=== PATIENT | female | born 1960 | race African-American/Black ===

== ENCOUNTER 2017-09-29 18:15 | Inpatient (IN) | payer OTHER ==
--- NOTE | 2017-09-29 18:25 | PDOC ---
Rapid Medical Evaluation Time Seen by Provider: 09/29/17 18:22 Medical Evaluation: I have performed a brief in-person evaluation of this patient. The patient presents with a chief complaint of: palpitations, sporadic since earlier today. Dr. Loo would like her admitted Pertinent physical exam findings: none I have ordered the following: EKG, labs, UA/culture The patient will proceed to the ED for further evaluation.
[2017-09-29 19:39] LABS: BASO % 0.5 % (0-2.0); HEMATOCRIT 32.2 % (32.4-45.2); HEMOGLOBIN 10.6 GM/dL (10.7-15.3); LYMPH % 29.6 % (8-40); MCH 28.3 pg (25.7-33.7); MCHC 32.8 g/dl (32.0-36.0); MEAN CELL VOLUME 86.1 fl (80-96); MEAN PLT VOLUME 9.4 fl (7.5-11.1); MONO % 6.5 % (3.8-10.2); NEUT % 63.4 % (42.8-82.8); PLATELET COUNT 224 K/MM3 (134-434); RBC 3.74 M/mm3 (3.60-5.2); RDW 15.6 % (11.6-15.6); WHITE BLOOD COUNT 7.4 K/mm3 (4.0-10.0)
--- NOTE | 2017-09-29 19:53 | PDOC ---
History of Present Illness - General Chief Complaint: Chest Pain Stated Complaint: CHEST PAIN Time Seen by Provider: 09/29/17 18:22 History Source: Patient - History of Present Illness Initial Comments: 09/29/17 19:39 57 year old female with Complaining of palpitations, chest pain, shortness of breath is morning. Patient reports that she has a past medical history of coronary artery disease with stents, IDDM, psychiatric illness. Patient reports that she took 1 baby aspirin this morning. She is a current every day smoker. patient was sent by pmd for admission BY pMD. patient reports that she was recently admitted for psychiatric illness and was started on Pristiq PMD: DR. Loo Cardiology: Dr. Ben Cervantes Past History - Past Medical History Allergies/Adverse Reactions: Allergies Allergy/AdvReac Type Severity Reaction Status Date / Time No Known Allergies Allergy Verified 09/29/17 18:23 Home Medications: Ambulatory Orders Aspirin 81 mg PO DAILY 09/29/17 Atenolol [Tenormin -] 25 mg PO DAILY 09/29/17 Desvenlafaxine [Desvenlafaxine ER] 100 mg PO DAILY 09/29/17 Lisinopril 10 mg PO DAILY 09/29/17 Olanzapine 12.5 mg PO HS 09/29/17 Rosuvastatin [Crestor -] 10 mg PO DAILY 09/29/17 Insulin Sliding Scale [Novolog Vial Sliding Scale -] 1 vial SQ ACHS units 10/01 Nicotine Polacrilex [Nicorelief -] 2 mg BUC Q2H PRN gum 10/01/17 Olanzapine [ZyPREXA -] 12.5 mg PO HS tablet 10/01/17 Olanzapine [Zyprexa -] 12.5 mg PO HS tablet 10/01/17 Insulin (Levemir) [Levemir Vial] 25 units SQ AM ml 10/02/17 Insulin (Levemir) [Levemir Vial] 70 units SQ HS ml 10/02/17 Cardiac Disorders: Yes (CAD, 3 STENTS) COPD: No Diabetes: Yes HTN: Yes Psychiatric Problems: Yes - Surgical History Cardiac Surgery: Yes (3 STENTS) - Suicide/Smoking/Psychosocial Hx Smoking History: Current every day smoker Have you smoked in the past 12 months: Yes Number of Cigarettes Smoked Daily: 10 Information on smoking cessation initiated: No Review of Systems - Review of Systems Able to Perform ROS?: Yes Is the patient limited Syriac proficient: No Constitutional: No: Symptoms Reported, See HPI, Chills, Diaphoresis, Fever, Loss of Appetite, Malaise, Night Sweats, Weakness, Weight Stable, Unintentional Wgt. Loss, Unexplained wgt Loss, Other HEENTM: No: Symptoms Reported, See HPI, Eye Pain, Blurred Vision, Tearing, Recent change in vision, Double Vision, Cataracts, Ear Pain, Ocular Prothesis, Ear Discharge, Nose Pain, Nose Congestion, Tinnitus, Nose Bleeding, Hearing Loss , Throat Pain, Throat Swelling, Mouth Pain, Dental Problems, Difficulty Swallowing, Mouth Swelling, Other Respiratory: Yes: Shortness of Breath. No: Symptoms reported, See HPI, Cough, Orthopnea, SOB with Exertion, SOB at Rest, Stridor, Wheezing, Productive cough, Hemoptysis, Other Cardiac (ROS): Yes: Chest Pain, Palpitations ABD/GI: No: Symptoms Reported, See HPI, Abdominal Distended, Abd. Pain w/ defecation, Blood Streaked Bowels, Constipated, Diarrhea, Difficulty Swallowing , Nausea, Poor Appetite, Poor Fluid Intake, Rectal Bleeding, Vomiting, Indigestion, Abdominal cramping, Tarry Stools, Other Integumentary: No: Symptoms Reported, See HPI, Bruising, Change in Color, Change in Hair/Nails, Dryness, Erythema, Flushing, Lesions, Lumps, Pallor, Pruritus, Rash, Sweating, Other Neurological: No: Symptoms reported, See HPI, Headache, Numbness, Paresthesia, Pre-Existing Deficit, Seizure, Tingling, Tremors, Weakness, Unsteady Gait, Ataxia, Dizziness, Other *Physical Exam - Vital Signs Last Vital Signs Temp Pulse Resp BP Pulse Ox 98.5 F 94 H 18 136/81 97 10/02/17 10:00 10/02/17 10:00 10/02/17 10:00 10/02/17 10:10/02/17 10:00 - Physical Exam General Appearance: Yes: Appropriately Dressed HEENT: positive: Normal ENT Inspection Respiratory/Chest: positive: Lungs Clear, Normal Breath Sounds Cardiovascular: positive: Regular Rhythm, Regular Rate, S1, S2 Gastrointestinal/Abdominal: positive: Normal Bowel Sounds, Soft Musculoskeletal: positive: Normal Inspection Extremity: positive: Normal Capillary Refill, Normal Inspection, Normal Range of Motion Integumentary: positive: Normal Color, Dry, Warm Neurologic: positive: Fully Oriented, Alert, Normal Mood/Affect Heart Score/ECG Review - History History: Moderately suspicious - Electrocardiogram EKG: Normal - Age Age: 45-65 - Risk Factors Risk Factors Heart Score: Yes Hx Hypercholesterolemia, Yes Hx Hypertension, Yes Hx Diabetes, Yes Smoking History Based on the list above the patient has:: >/=3 risk factors or Hx atherosclerotic disease - Troponin Troponin: </= normal limit - Score Heart Score - Total: 4 - ECG Intrepretation Rhythm: Regular Rhythm Comment:: 09/29/17 20:30 NSR " 100bpm - P and [place] Atrial Enlargement: Left ED Treatment Course - LABORATORY CBC & Chemistry Diagram: 09/30/17 06:00 09/30/17 06:00 - ADDITIONAL ORDERS Additional order review: 09/29/17 19:10 RBC 3.74 MCV 86.1 MCHC 32.8 RDW 15.6 MPV 9.4 Neutrophils % 63.4 Lymphocytes % 29.6 Monocytes % 6.5 Eosinophils % 0.0 Basophils % 0.5 - RADIOLOGY Chest X-Ray Result: No Infiltrates - Medications Given in the ED: ED Medications Discontinued Medications Generic Name Dose Route Start Last Admin Trade Name Freq PRN Reason Stop Dose Admin Aspirin 325 mg 09/29/17 22:26 09/29/17 23:02 Asa - PO 09/29/17 22:27 325 mg ONCE ONE Administration Aspirin 81 mg 09/30/17 10:00 10/02/17 10:19 Asa - PO 81 mg DAILY MARI Administration Atenolol 25 mg 09/30/17 10:00 09/30/17 10:48 Tenormin - PO 25 mg DAILY MARI Administration Atenolol 25 mg 10/02/17 10:00 10/02/17 10:19 Tenormin - PO 25 mg DAILY MARI Administration Clopidogrel Bisulfate 300 mg 10/02/17 10:24 10/02/17 10:49 Plavix - PO 10/02/17 10:25 300 mg ONCE ONE Administration Insulin Aspart 1 vial 09/30/17 07:00 10/02/17 06:22 Novolog Vial Sliding Scale - SQ Not Given [facility] Protocol Insulin Detemir 70 units 09/30/17 22:00 09/30/17 21:47 Levemir Vial SQ 70 units HS MARI Administration Insulin Detemir 25 units 10/01/17 07:00 10/02/17 06:22 Levemir Vial SQ Not Given AM MARI Lisinopril 10 mg 09/30/17 10:00 10/02/17 10:19 Prinivil PO 10 mg DAILY MARI Administration Olanzapine 2.5 mg/ Olanzapine 12.5 mg 09/30/17 22:00 10/01/17 21:53 10 mg PO 12.5 mg HS MARI Administration Rosuvastatin Calcium 10 mg 09/30/17 10:00 10/02/17 10:19 Crestor - PO 10 mg DAILY MARI Administration Venlafaxine HCl 150 mg 09/30/17 10:00 10/02/17 10:19 Effexor Xr - PO 150 mg DAILY MARI Administration Medical Decision Making - Medical Decision Making Chest pain P: cbc cmp cardiac chest xray 09/29/17 21:13 patient to be admitted for further management of care., patient signed to Dr. Bain *DC/Admit/Observation/Transfer Diagnosis at time of Disposition: Heart palpitations Chest pain Qualifiers: Chest pain type: chest pain on breathing Qualified Code(s): R07.1 - Chest pain on breathing - Discharge Dispostion Condition at time of disposition: Fair Decision to Admit order: Yes - Referrals - Patient Instructions - Post Discharge Activity
[2017-09-29 19:54] LABS: ALBUMIN 3.6 g/dl (3.4-5.0); ANION GAP 6 (8-16); BILIRUBIN,TOTAL 0.3 mg/dL (0.2-1.0); BLOOD UREA NITROGEN 13 mg/dL (7-18); CALCIUM 8.9 mg/dL (8.5-10.1); CHLORIDE 107 mmol/L (98-107); CO2 28 mmol/L (21-32); CREATININE 0.7 mg/dL (0.55-1.02); GLUCOSE,RANDOM 122 mg/dL (74-106); POTASSIUM 3.9 mmol/L (3.5-5.1); SGOT/AST 18 U/L (15-37); SGPT/ALT 36 U/L (12-78); SODIUM 141 mmol/L (136-145); TOT PROT 6.4 g/dl (6.4-8.2)
[2017-09-29 19:56] LABS: ALK PHOS 52 U/L (45-117)
[2017-09-29 21:11] LABS: URINE APPEARANCE CLOUDY; URINE BILIRUBIN NEGATIVE (<2.0 mg/dL); URINE COLOR YELLOW; URINE GLUCOSE (UA) NEGATIVE (NEGATIVE); URINE KETONE NEGATIVE (NEGATIVE); URINE NITRITE NEGATIVE (NEGATIVE); URINE PROTEIN NEGATIVE (NEGATIVE); URINE UROBILINOGEN NEGATIVE mg/dL (0.2-1.0)
[2017-09-29 21:17] LABS: URINE LEUK ESTERASE 3+ (NEGATIVE)
[2017-09-29 21:20] LABS: EPI CELLS MANY /HPF (FEW); URINE BACTERIA RARE /hpf (NONE SEEN); URINE MUCUS RARE
--- NOTE | 2017-09-29 21:32 | HP ---
Admitting History and Physical - Primary Care Physician PCP: Albin Loo - Admission Chief Complaint: chest pain/palpitations History of Present Illness: 57yo woman with PMH of CAD s/p 3 x stents, active smoker, IDDM, MDD (recent Psych in-pt August 2017) who presents with chest palpitations and shortness of breath starting earlier today. Patient was driving to her PCP (Dr. Loo) earlier today when she felt chest palpitations that was associated with intermittent, non-radiating chest pain localized to under L breast. Reports that she had similar symptoms that lead to her stent placement. Also endorses associated shortness of breath. Denies chest pressure, diaphoresis, nausea, vomiting, diarrhea, and abdominal pain. Denies dysuria or urinary frequency. Denies any recent ECHO or stress test. History Source: Patient, Medical Record Limitations to Obtaining History: No Limitations - Past Medical History Cardiovascular: Yes: CAD, HTN, Hyperlipdemia Psych: Yes: Depression, Other (Multiple in-patient psychiatric hospitalizations for MDD; last 09/04- 24 at [facility] for suicidal ideation, no prior suicide attemps. Recently started on Pristiq (Desvenlafaxine 100mg daily)) - Past Surgical History Additional Past Surgical History: December 2014 - 1x Stent (by Dr. 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 History of Recent Travel: No Home Medications - Allergies Allergies/Adverse Reactions: Allergies Allergy/AdvReac Type Severity Reaction Status Date / Time No Known Allergies Allergy Verified 09/29/17 18:23 - Home Medications Home Medications: Ambulatory Orders Aspirin 81 mg PO DAILY 09/29/17 Atenolol [Tenormin -] 25 mg PO DAILY 09/29/17 Desvenlafaxine [Desvenlafaxine ER] 100 mg PO DAILY 09/29/17 Insulin Glulisine [Apidra Solostar] 70 unit SQ HS 09/29/17 Lisinopril 10 mg PO DAILY 09/29/17 Metformin HCl 500 mg PO BID 09/29/17 Olanzapine 12.5 mg PO HS 09/29/17 Rosuvastatin [Crestor -] 10 mg PO DAILY 09/29/17 Sitagliptin Phosphate [Januvia] 100 mg PO DAILY 09/29/17 Family Disease History - Family Disease History Family Disease History: Diabetes: Father ([place]), Mother (CABG, at 73yo; Depression), Other: Mother, Brother (Depression; committed suicide) Review of Systems - Review of Systems Cardiovascular: reports: Chest Pain, Palpitations, Shortness of Breath Respiratory: reports: Exercise Intolerance Gastrointestinal: reports: Other (No diarrhea, nausea, vomiting, melena, abdominal pain) Psychiatric: reports: Other. denies: Suicidal (no active suicidial ideation) Physical Examination Vital Signs: Vital Signs Temperature 98.6 F 09/29/17 18:23 Pulse Rate 104 H 09/29/17 18:23 Respiratory Rate 19 09/29/17 18:23 Blood Pressure 147/77 09/29/17 18:23 O2 Sat by Pulse Oximetry (%) 98 09/29/17 19:50 Constitutional: Yes: Well Nourished, No Distress Eyes: Yes: Conjunctiva Clear, EOM Intact. No: Sclera Icterus HENT: No: Pharyngeal Erythema Neck: Yes: Supple. No: Lymphadenopathy Cardiovascular: Yes: Regular Rate and Rhythm. No: Gallop, Murmur, Rub Respiratory: Yes: CTA Bilaterally Gastrointestinal: Yes: Soft, Abdomen, Obese, Other (non-tender, non-distended) Renal/: Yes: WNL, Other (No suprapubic tenderness). No: CVA Tenderness - Left , CVA Tenderness - Right Extremities: Yes: WNL Edema: No Peripheral Pulses WNL: Yes Peripheral Pulses: Left Doralis Pedis: 2+, Right Dorsalis Pedis: 2+ Neurological: Yes: WNL, Alert, Oriented, Cran Nerves II-XII Intact ...Motor Strength: WNL Psychiatric: Yes: WNL Labs: CBC, BMP 09/29/17 19:10 09/29/17 19:10 Urine Test Results Urine Color Yellow 09/29/17 21:03 Urine Appearance Cloudy 09/29/17 21:03 Urine pH 6.0 (5.0-8.0) 09/29/17 21:03 Ur Specific [place] 1.015 (1.001-1.035) 09/29/17 21:03 Urine Protein Negative (NEGATIVE) 09/29/17 21:03 Urine Glucose (UA) Negative (NEGATIVE) 09/29/17 21:03 Urine Ketones Negative (NEGATIVE) 09/29/17 21:03 Urine Blood Negative (NEGATIVE) 09/29/17 21:03 Urine Nitrite Negative (NEGATIVE) 09/29/17 21:03 Urine Bilirubin Negative (<2.0 mg/dL) 09/29/17 21:03 Ur Leukocyte Esterase 3+ (NEGATIVE) H 09/29/17 21:03 Ur Epithelial Cells Many /HPF (FEW) 09/29/17 21:03 Urine Bacteria Rare /hpf (NONE SEEN) 09/29/17 21:03 Urine Mucus Rare 09/29/17 21:03 Laboratory Tests 09/29/17 09/29/17 09/29/17 19:10 21:14 21:14 D-Dimer 346 Creatine Kinase 204 H Creatine Kinase Index 0.9 CK-MB (CK-2) 1.951 Troponin I < 0.02 TSH 0.48 Imaging - Results Chest X-ray: Image Reviewed (No acute pathology) EKG: Image Reviewed (NSR, rate 100, Q waves anteroseptal leads, QTc 479 (no prior EKGs to compare)) Assessment/Plan 57yo woman with PMH of CAD s/p 3x stents, IDDM, HTN, hyperlipidemia, and MDD who presents with intermittent chest pain and palpitations starting earlier today concerning for cardiac etiology. #atypical chest pain, r/o ACS. TSH wnl. D-dimer not elevated. 1x Trop negative -Serial Troponin Q6H -Trend EKG -Give ASA 325mg PO now, c/w home ASA 81 daily and Atenolol 25mg daily -continuous telemetry monitoring -Cardiology consultation -2D ECHO -Morphine and nitropaste PRN for chest pain -check lipid panel #HTN - c/w home lisinopril #IDDM -Check A1c -c/w home Glargine 70U HS -BGM/ISS ACHS #hyperlipidemia - c/w home statin #major depression disorder -c/w home meds #normocytic anemia -Check B12, Folate, Fe Studies -Advised colonoscopy screening as never had one #nicotine dependence #FEN PO intake lytes wnl DM/Na controlled diet #PPX - SCDs #DISPO: observation telemetry FULL code d/w Dr. Taya Cervantes MD PGY1 - Internal Medicine, Night Configuration Consultant Visit type - Emergency Visit Emergency Visit: Yes Care time: The patient presented to the Emergency Department on the above date and was hospitalized for further evaluation of their emergent condition. - New Patient This patient is new to me today: Yes Date on this admission: 09/29/17 - Critical Care Critical Care patient: No Hospitalist Screening - Colonoscopy Questionnaire Colonoscopy Questionnaire: Colonoscopy Questionnaire - Patient: 50 - 75 years old and never had a screening colonoscopy: Yes History of colon or rectal polyps, or CA: No History of IBD, Crohn's disease or UC: No History of abdominal radiation therapy as a child: Unknown - Relative: 1 with colon or rectal CA, or polyps at age 60 or younger: Unknown Colon or rectal CA diagnosed at age 45 or younger: Unknown Multiple relatives with colon or rectal CA: Unknown - Outcome: Screening Result: Positive Screen
--- NOTE | 2017-09-29 22:07 | PN ---
Teaching Attending Note Name of Resident: Sheryl Cervantes ATTENDING PHYSICIAN STATEMENT I saw and evaluated the patient. I reviewed the resident's note and discussed the case with the resident. I agree with the resident's findings and plan as documented. SUBJECTIVE: 57 F with pmhx of CAD s/p 3 stents, Current Smoker, IDDM, "psychiatric illness "/?MDD, who presents with palpitations and shortness of breath. Also with associated chest pain. States Pain is located underneath her left breast and is non-radiating. No chest pressure. No diaphoresis. No nausea, vomiting, or diarrhea. No urinary frequency or urgency/dysuria. States her chest pain is her anginal equivlant of pain she had 3 years ago before her stent. OBJECTIVE: Physical: VS: Vital Signs Period Temp Pulse Resp BP Sys/[place] Pulse Ox Last 24 Hr 98.6 F 104 19 147/77 98-99 GEN: NAD, Resting in bed, AA0X3 HEENT: NCAT, PERRL, Throat without erythema or exudates CARD: RRR S1, S2 RESP: CTAB ABD: Bsx4, NTD to palpation EXT:- C/C/E CBCD WBC 7.4 K/mm3 (4.0-10.0) 09/29/17 19:10 RBC 3.74 M/mm3 (3.60-5.2) 09/29/17 19:10 Hgb 10.6 GM/dL (10.7-15.3) L 09/29/17 19:10 Hct 32.2 % (32.4-45.2) L 09/29/17 19:10 MCV 86.1 fl (80-96) 09/29/17 19:10 MCHC 32.8 g/dl (32.0-36.0) 09/29/17 19:10 RDW 15.6 % (11.6-15.6) 09/29/17 19:10 Plt Count 224 K/MM3 (134-434) 09/29/17 19:10 MPV 9.4 fl (7.5-11.1) 09/29/17 19:10 CMP Sodium 141 mmol/L (136-145) 09/29/17 19:10 Potassium 3.9 mmol/L (3.5-5.1) 09/29/17 19:10 Chloride 107 mmol/L (98-107) 09/29/17 19:10 Carbon Dioxide 28 mmol/L (21-32) 09/29/17 19:10 Anion Gap 6 (8-16) L 09/29/17 19:10 BUN 13 mg/dL (7-18) 09/29/17 19:10 Creatinine 0.7 mg/dL (0.55-1.02) 09/29/17 19:10 Creat Clearance w eGFR > 60 (>60) 09/29/17 19:10 Random Glucose 122 mg/dL (74-106) H 09/29/17 19:10 Calcium 8.9 mg/dL (8.5-10.1) 09/29/17 19:10 Total Bilirubin 0.3 mg/dL (0.2-1.0) 09/29/17 19:10 AST 18 U/L (15-37) 09/29/17 19:10 ALT 36 U/L (12-78) 09/29/17 19:10 Alkaline Phosphatase 52 U/L (45-117) 09/29/17 19:10 Total Protein 6.4 g/dl (6.4-8.2) 09/29/17 19:10 Albumin 3.6 g/dl (3.4-5.0) 09/29/17 19:10 CARDIAC ENZYMES Creatine Kinase 204 IU/L (26-192) H 09/29/17 19:10 Troponin I < 0.02 ng/ml (0.00-0.05) 09/29/17 19:10 CXR: NO Acute Disease EKG: NSR Q waves anteroseptal leads, QtC- 479 Home Medications Medication Instructions Recorded Aspirin 81 mg PO DAILY 09/29/17 Atenolol [Tenormin -] 25 mg PO DAILY 09/29/17 Desvenlafaxine [Desvenlafaxine ER] 100 mg PO DAILY 09/29/17 Insulin Glulisine [Apidra Solostar] 70 unit SQ HS 09/29/17 Lisinopril 10 mg PO DAILY 09/29/17 Metformin HCl 500 mg PO BID 09/29/17 Olanzapine 2.5 mg PO HS 09/29/17 Rosuvastatin [Crestor -] 10 mg PO DAILY 09/29/17 Sitagliptin Phosphate [Januvia] 100 mg PO DAILY 09/29/17 ASSESSMENT AND PLAN: 57 F with pmhx of CAD s/p 3 stents, Current Smoker, IDDM, "psychiatric illness "/?MDD, who presents with chest pain and palpitations 1.) Chest Pain/Hx. of CAD/Shortness of Breath - Wells 1.5 Tachy - Trend Trop/EKG - ECHO - HEART 4 - ASA, BB - Nitro/Morphine prn pain - O2 - Dimer 2.) Palpitations - Check TSH 3.) DM - FS - RAISS 4.) MDD - C/W Home meds 5.) Current Smoker - Advised smoking cessation 6.) Normocytic Anemia - Check B12, Folate, Fe Studies - [place] oupt. if not recently done 7.) DVT Ppx - Scds Place in Obs-Tele
[2017-09-29] MEDS ORDERED: ASPIRIN 325 MG TABLET PO ONE (22:26)
[2017-09-29] MEDS ORDERED: morphine SULFATE 4 MG/ML VIAL IVPUSH PRN (23:08)
[2017-09-29] MEDS ORDERED: NITROGLYCERIN 2% OINTMENT - 1GM PACKET TD PRN (23:08)
[2017-09-30] MEDS ORDERED: NICOTINE POLACRILEX 2 MG GUM BUC PRN (01:16)
[2017-09-30 02:51] VITALS: BMI 27.1
[2017-09-30] MEDS: INSULIN SLIDING SCALE (NOVOLOG) 1 VIAL SQ SCH ×4 (06:07→21:48)
[2017-09-30 06:53] LABS: HEMATOCRIT 32.4 % (32.4-45.2); HEMOGLOBIN 10.7 GM/dL (10.7-15.3); MCHC 32.9 g/dl (32.0-36.0); MEAN CELL VOLUME 84.9 fl (80-96); MEAN PLT VOLUME 8.9 fl (7.5-11.1); PLATELET COUNT 223 K/MM3 (134-434); RBC 3.81 M/mm3 (3.60-5.2); RDW 15.4 % (11.6-15.6); WHITE BLOOD COUNT 6.5 K/mm3 (4.0-10.0)
[2017-09-30 07:05] LABS: ANION GAP 6 (8-16); BLOOD UREA NITROGEN 10 mg/dL (7-18); CHLORIDE 108 mmol/L (98-107); CO2 29 mmol/L (21-32); GLUCOSE,RANDOM 124 mg/dL (74-106); POTASSIUM 3.7 mmol/L (3.5-5.1); SODIUM 143 mmol/L (136-145)
[2017-09-30 07:06] LABS: CREATININE 0.5 mg/dL (0.55-1.02)
[2017-09-30] MEDS ORDERED: ATENOLOL 25 MG TABLET (FP) PO SCH (10:00)
--- NOTE | 2017-09-30 10:01 | EKG ---
Test Reason : Blood Pressure : / mmHG Vent. Rate : 091 BPM Atrial Rate : 091 BPM P-R Int : 152 ms QRS Dur : 090 ms QT Int : 396 ms P-R-T Axes : 070 000 091 degrees QTc Int : 487 ms NORMAL SINUS RHYTHM POSSIBLE LEFT ATRIAL ENLARGEMENT SEPTAL INFARCT (CITED ON OR BEFORE 29-SEP-2017) ABNORMAL ECG WHEN COMPARED WITH ECG OF 29-SEP-2017 18:31, NO SIGNIFICANT CHANGE WAS FOUND Confirmed by MD Kishan, Tyson ([id number]) on 09/30/2017 10:00:55 AM Referred By: Confirmed By:Tyson Holley MD
--- NOTE | 2017-09-30 10:03 | EKG ---
Test Reason : Blood Pressure : / mmHG Vent. Rate : 100 BPM Atrial Rate : 100 BPM P-R Int : 136 ms QRS Dur : 086 ms QT Int : 372 ms P-R-T Axes : 067 -20 089 degrees QTc Int : 479 ms NORMAL SINUS RHYTHM POSSIBLE LEFT ATRIAL ENLARGEMENT ANTEROSEPTAL INFARCT , AGE UNDETERMINED ABNORMAL ECG Lateral T wave abnormalities Confirmed by MD Kishan, Tyson ([id number]) on 09/30/2017 10:03:23 AM Referred By: Confirmed By:Tyson Holley MD
[2017-09-30] MEDS ORDERED: INSULIN (NOVOLOG) ASPART 100 UNITS/ML 10ML VIAL ONE (10:41)
[2017-09-30] MEDS: VENLAFAXINE HCL 75 MG E.R. CAPSULES (FP) PO SCH (10:47)
[2017-09-30] MEDS: ASPIRIN 81 MG CHEWABLE TABLETS PO SCH (10:48)
[2017-09-30] MEDS: ROSUVASTATIN CA 10 MG TABLET (FP) PO SCH ×2 (10:48→11:04)
[2017-09-30] MEDS: LISINOPRIL 10 MG TABLET (FP) PO SCH (10:48)
[2017-09-30 11:11] LABS: CHOLESTEROL 113 mg/dL (50-200); HDL CHOLESTEROL 51 mg/dL (40-60); TRIGLYCERIDES 106 mg/dL (35-160)
--- NOTE | 2017-09-30 13:54 | EKG ---
Test Reason : Blood Pressure : / mmHG Vent. Rate : 100 BPM Atrial Rate : 100 BPM P-R Int : 138 ms QRS Dur : 088 ms QT Int : 366 ms P-R-T Axes : 079 003 083 degrees QTc Int : 472 ms NORMAL SINUS RHYTHM SEPTAL INFARCT (CITED ON OR BEFORE 29-SEP-2017) ABNORMAL ECG WHEN COMPARED WITH ECG OF 29-SEP-2017 22:43, NO SIGNIFICANT CHANGE WAS FOUND Confirmed by MD Kishan, Tyson ([id number]) on 09/30/2017 1:54:15 PM Referred By: ANSHU BAUTISTA Confirmed By:Tyson Holley MD
--- NOTE | 2017-09-30 14:51 | PN ---
Progress Note, Physician Chief Complaint: 57 year old black female presented complaining of palpitations, chest pain, shortness of breath in the morning. Patient reports that she has a past medical history of coronary artery disease ([place]) with coronary stents (latest 01/2015), psychiatric illness, DM, HTN, hyperlipidemia; father of [place] in his 50s; mother had CABG in her early 70s. Patient reports that she took 1 baby aspirin this morning. She is a current every day smoker. patient was sent by pmd for admission. patient reports that she was recently admitted for psychiatric illness and was started on Pristiq - Current Medication List Current Medications: Active Medications Aspirin (Asa -) 81 mg PO DAILY [facility] Last Admin: 09/30/17 10:48 Dose: 81 mg Atenolol (Tenormin -) 25 mg PO DAILY [facility] Last Admin: 09/30/17 10:48 Dose: 25 mg Insulin Aspart (Novolog Vial Sliding Scale -) 1 vial SQ [facility] PRN Reason: Protocol Last Admin: 09/30/17 11:11 Dose: 2 units Insulin Detemir (Levemir Vial) 70 units SQ [facility] Lisinopril (Prinivil) 10 mg PO DAILY [facility] Last Admin: 09/30/17 10:48 Dose: 10 mg Morphine Sulfate (Morphine Sulfate) 1 mg IVPUSH Q4H PRN PRN Reason: PAIN LEVEL 7 - 10 Nicotine Polacrilex (Nicorette Gum -) 2 mg BUC Q2H PRN PRN Reason: NICOTINE REPLACEMENT RX Nitroglycerin (Nitro-Bid 2% Paste -) 0.5 inch TD ONCE PRN PRN Reason: FOR CHEST PAIN Stop: 09/30/17 23:07 Olanzapine 2.5 mg/ Olanzapine (10 mg) 12.5 mg PO [facility] Rosuvastatin Calcium (Crestor -) 10 mg PO DAILY [facility] Last Admin: 09/30/17 11:04 Dose: Not Given Venlafaxine HCl (Effexor Xr -) 150 mg PO DAILY [facility] Last Admin: 09/30/17 10:47 Dose: 150 mg - Objective Vital Signs: Vital Signs Temperature 98.6 F 09/30/17 10:00 Pulse Rate 88 09/30/17 10:00 Respiratory Rate 18 09/30/17 10:00 Blood Pressure 133/67 09/30/17 10:00 O2 Sat by Pulse Oximetry (%) 97 09/30/17 10:00 Constitutional: Yes: Mild Distress Eyes: Yes: WNL HENT: Yes: WNL Neck: Yes: WNL Cardiovascular: Yes: WNL Respiratory: Yes: WNL Gastrointestinal: Yes: WNL Genitourinary: Yes: WNL Musculoskeletal: Yes: WNL Extremities: Yes: WNL Edema: No Peripheral Pulses WNL: Yes Integumentary: Yes: WNL Wound/Incision: Yes: Clean/Dry Neurological: Yes: WNL ...Motor Strength: WNL Psychiatric: Yes: Other Labs: CBC, BMP 09/30/17 06:00 09/30/17 06:00 Problem List - Problems (1) Chest pain Code(s): R07.9 - CHEST PAIN, UNSPECIFIED Qualifiers: Chest pain type: chest pain on breathing Qualified Code(s): R07.1 - Chest pain on breathing; R07.81 - Pleurodynia (2) Controlled diabetes mellitus type 2 with complications Code(s): E11.8 - TYPE 2 DIABETES MELLITUS WITH UNSPECIFIED COMPLICATIONS (3) [place] cardiac risk >20% in next 10 years Code(s): Z91.89 - OTH PERSONAL RISK FACTORS, NOT ELSEWHERE CLASSIFIED (4) HTN (hypertension) Code(s): I10 - ESSENTIAL (PRIMARY) HYPERTENSION (5) Heart palpitations Code(s): R00.2 - PALPITATIONS (6) Hyperlipidemia Code(s): E78.5 - HYPERLIPIDEMIA, UNSPECIFIED Assessment/Plan cardiac monitoring cardiology consult troponin series check ac per cardiology d/w Dr Donald mejia to chair
--- NOTE | 2017-09-30 16:18 | CON.CARD ---
Consult Consult Specialty:: cardiology Reason for Consultation:: palpitations; chest pain; hx [place] with coronary stents - History of Present Illness History of Present Illness: 57 year old black female presented complaining of palpitations, chest pain, shortness of breath in the morning. Patient reports that she has a past medical history of coronary artery disease ([place]) with coronary stents (latest 01/2015), psychiatric illness, DM, HTN, hyperlipoidemia; father of [place] in his 50s; mother had CABG in her early 70s. Patient reports that she took 1 baby aspirin this morning. She is a current every day smoker. patient was sent by pmd for admission. patient reports that she was recently admitted for psychiatric illness and was started on Pristiq PMD: DR. Loo Cardiology: Dr. Ben Cervantes - History Source History Provided By: Patient - Past Medical History Cardio/Vascular: Yes: CAD, HTN, Hyperlipdemia, [place] Reproductive: Yes: Postmenopausal ...: No Psych: Yes: Depression, Other (Multiple in-patient psychiatric hospitalizations for MDD; last 09/04- at [facility] for suicidal ideation, no prior suicide attemps. 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 History of Recent Travel: No Home Medications - Allergies Allergies/Adverse Reactions: Allergies Allergy/AdvReac Type Severity Reaction Status Date / Time No Known Allergies Allergy Verified 09/29/17 18:23 - Home Medications Home Medications: Ambulatory Orders Aspirin 81 mg PO DAILY 09/29/17 Atenolol [Tenormin -] 25 mg PO DAILY 09/29/17 Desvenlafaxine [Desvenlafaxine ER] 100 mg PO DAILY 09/29/17 Lisinopril 10 mg PO DAILY 09/29/17 Olanzapine 12.5 mg PO HS 09/29/17 Rosuvastatin [Crestor -] 10 mg PO DAILY 09/29/17 Insulin Sliding Scale [Novolog Vial Sliding Scale -] 1 vial SQ ACHS units 10/01 Nicotine Polacrilex [Nicorelief -] 2 mg BUC Q2H PRN gum 10/01/17 Olanzapine [ZyPREXA -] 12.5 mg PO HS tablet 10/01/17 Olanzapine [Zyprexa -] 12.5 mg PO HS tablet 10/01/17 Insulin (Levemir) [Levemir Vial] 25 units SQ AM ml 10/02/17 Insulin (Levemir) [Levemir Vial] 70 units SQ HS ml 10/02/17 Family Disease History - Family Disease History Family Disease History: Diabetes: Father ([place]), Mother (CABG, at 73yo; Depression), Other: Mother, Brother (Depression; committed suicide) Review of Systems - Review of Systems Constitutional: reports: No Symptoms Eyes: reports: No Symptoms HENT: reports: No Symptoms Neck: reports: No Symptoms Cardiovascular: reports: Chest Pain, Palpitations Respiratory: reports: No Symptoms Gastrointestinal: reports: No Symptoms Genitourinary: reports: No Symptoms Breasts: reports: No Symptoms Reported Musculoskeletal: reports: No Symptoms Integumentary: reports: No Symptoms Neurological: reports: No Symptoms Endocrine: reports: No Symptoms Hematology/Lymphatic: reports: No Symptoms Psychiatric: reports: Anxiety, Other - Risk Factors Known Risk Factors: Yes: Age, Diabetes Mellitus, Family History, Hypercholesterolemia, Hypertension, Race, Smoking Vital Signs: Vital Signs Temperature 98.2 F 09/30/17 14:04 Pulse Rate 84 09/30/17 14:04 Respiratory Rate 16 09/30/17 14:04 Blood Pressure 117/65 09/30/17 14:04 O2 Sat by Pulse Oximetry (%) 97 09/30/17 10:00 Constitutional: Yes: Anxious Eyes: Yes: WNL HENT: Yes: WNL Neck: Yes: WNL Respiratory: Yes: WNL Gastrointestinal: Yes: WNL Renal/: No: Anuria Cardiovascular: Yes: Regular Rate and Rhythm JVD: No Carotid Bruit: No PMI: Non-Displaced Heart Sounds: Yes: S1, S2 Murmur: Yes: Systolic Murmur, Grade 1 Musculoskeletal: Yes: WNL Extremities: Yes: WNL, Erythema Peripheral Pulses WNL: Yes Integumentary: Yes: WNL Neurological: Yes: WNL Psychiatric: Yes: WNL - Other Data Labs, Other Data: CBC, BMP 09/30/17 06:00 09/30/17 06:00 Troponin, BNP 09/29/17 09/30/17 09/30/17 19:10 01:08 06:00 Troponin I < 0.02 < 0.02 < 0.02 09/30/17 09:25 Troponin I < 0.02 Troponin, BNP 09/29/17 09/30/17 09/30/17 19:10 01:08 06:00 Troponin I < 0.02 < 0.02 < 0.02 09/30/17 09:25 Troponin I < 0.02 Abnormal Lab Results 09/30/17 09/30/17 09/30/17 01:08 06:00 06:00 Chloride 108 H Anion Gap 6 L Creatinine 0.5 L Random Glucose 124 H Hemoglobin A1c % 8.2 H Creatine Kinase 200 H Ejection Fraction %: LVEF > or = 40 % Imaging - Results Ultrasound: Report Reviewed (ECHO: low normal LVEF) Problem List - Problems (1) Chest pain Code(s): R07.9 - CHEST PAIN, UNSPECIFIED Qualifiers: Chest pain type: chest pain on breathing Qualified Code(s): R07.1 - Chest pain on breathing; R07.81 - Pleurodynia (2) Heart palpitations Assessment/Plan: f/u on telemetry. Code(s): R00.2 - PALPITATIONS (3) [place] cardiac risk >20% in next 10 years Assessment/Plan: ECHO: low normal LVEF. Stress treadmill MIBI in am. Code(s): Z91.89 - OTH PERSONAL RISK FACTORS, NOT ELSEWHERE CLASSIFIED (4) Diabetes Code(s): E11.9 - TYPE 2 DIABETES MELLITUS WITHOUT COMPLICATIONS (5) HTN (hypertension) Code(s): I10 - ESSENTIAL (PRIMARY) HYPERTENSION (6) Hyperlipidemia Assessment/Plan: on rosuvastatin; lipids well-controlled. Code(s): E78.5 - HYPERLIPIDEMIA, UNSPECIFIED
[2017-09-30] MEDS ORDERED: PT OWN MED DRAWER 7, Y5N ONE (17:28)
[2017-09-30] MEDS: OLANZAPINE PO SCH (21:48)
[2017-09-30] MEDS ORDERED: INSULIN (LEVEMIR) 100 UNITS/ML UNITS SQ SCH (22:00)
[2017-09-30] MEDS ORDERED: OLANZapine 10 MG TABLET PO SCH (22:00)
--- NOTE | 2017-09-30 23:47 | CONSULT ---
Consult Consult Specialty:: endocrine Reason for Consultation:: diabetes mellitus high sugars - History of Present Illness Chief Complaint: chest pain History of Present Illness: 57yo woman with PMH of CAD s/p 3 x stents, active smoker, IDDM, MDD (recent Psych in-pt August 2017) who presents with chest palpitations and shortness of breath starting earlier today. Patient was driving to her PCP (Dr. Loo) earlier today when she felt chest palpitations that was associated with intermittent, non-radiating has difficulty cathching her breath,high sugars, frequent urination no fever no nausea or vomiting - History Source History Provided By: Patient - Past Medical History Cardio/Vascular: Yes: CAD, HTN, Hyperlipdemia, [place] ...: No Psych: Yes: Depression, Other (Multiple in-patient psychiatric hospitalizations for MDD; last 09/04- at [facility] for suicidal ideation, no prior suicide attemps. 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 History of Recent Travel: No Home Medications - Allergies Allergies/Adverse Reactions: Allergies Allergy/AdvReac Type Severity Reaction Status Date / Time No Known Allergies Allergy Verified 09/29/17 18:23 - Home Medications Home Medications: Ambulatory Orders Aspirin 81 mg PO DAILY 09/29/17 Atenolol [Tenormin -] 25 mg PO DAILY 09/29/17 Desvenlafaxine [Desvenlafaxine ER] 100 mg PO DAILY 09/29/17 Insulin Glulisine [Apidra Solostar] 70 unit SQ HS 09/29/17 Lisinopril 10 mg PO DAILY 09/29/17 Metformin HCl 500 mg PO BID 09/29/17 Olanzapine 12.5 mg PO HS 09/29/17 Rosuvastatin [Crestor -] 10 mg PO DAILY 09/29/17 Sitagliptin Phosphate [Januvia] 100 mg PO DAILY 09/29/17 Family Disease History - Family Disease History Family Disease History: Diabetes: Father ([place]), Mother (CABG, at 73yo; Depression), Other: Mother, Brother (Depression; committed suicide) Review of Systems - Review of Systems Constitutional: reports: Weakness Eyes: reports: No Symptoms HENT: reports: No Symptoms Neck: reports: No Symptoms Cardiovascular: reports: Shortness of Breath Respiratory: reports: Exercise Intolerance, SOB on Exertion Gastrointestinal: reports: Constipation Genitourinary: reports: No Symptoms Breasts: reports: No Symptoms Reported Musculoskeletal: reports: Muscle Cramps, Muscle Weakness Endocrine: reports: Unexplained Weight Gain Physical Exam Vital Signs: Vital Signs Temperature 97.4 F L 09/30/17 17:37 Pulse Rate 84 09/30/17 17:37 Respiratory Rate 18 09/30/17 17:37 Blood Pressure 130/98 09/30/17 17:37 O2 Sat by Pulse Oximetry (%) 97 09/30/17 10:00 Constitutional: Yes: Anxious Eyes: Yes: EOM Intact HENT: Yes: Normocephalic Neck: Yes: Trachea Midline Cardiovascular: Yes: Regular Rate and Rhythm Respiratory: Yes: Rhonchi, SOB, Tachypnea Gastrointestinal: Yes: Normal Bowel Sounds ...Rectal Exam: Yes: Deferred Renal/: Yes: WNL Extremities: Yes: WNL Integumentary: Yes: Onychomycosis Neurological: Yes: Alert, Oriented Psychiatric: Yes: Alert, Oriented Labs: CBC, BMP 09/30/17 06:00 09/30/17 06:00 Problem List - Problems (1) Controlled diabetes mellitus type 2 with complications Code(s): E11.8 - TYPE 2 DIABETES MELLITUS WITH UNSPECIFIED COMPLICATIONS (2) Chest pain Code(s): R07.9 - CHEST PAIN, UNSPECIFIED Qualifiers: Chest pain type: chest pain on breathing Qualified Code(s): R07.1 - Chest pain on breathing; R07.81 - Pleurodynia (3) [place] cardiac risk >20% in next 10 years Code(s): Z91.89 - OTH PERSONAL RISK FACTORS, NOT ELSEWHERE CLASSIFIED (4) Heart palpitations Code(s): R00.2 - PALPITATIONS Assessment/Plan Current Active Problems Chest pain (Acute) [place] cardiac risk >20% in next 10 years (Acute) Heart palpitations (Acute) diabetes mellitus hyperglycemia diabetes mellitus neuropathy hypertension hyperlipidemia copd/asthmatic Abnormal Lab Results 05/08/18 05/08/18 05/08/18 01:08 06:00 06:00 Chloride 108 H Anion Gap 6 L Creatinine 0.5 L Random Glucose 124 H Hemoglobin A1c % 8.2 H Creatine Kinase 200 H Laboratory Results - last 24 hr 09/30/17 09/30/17 09/30/17 01:08 05:36 06:00 WBC 6.5 RBC 3.81 Hgb 10.7 Hct 32.4 MCV 84.9 MCH 28.0 MCHC 32.9 RDW 15.4 Plt Count 223 MPV 8.9 Sodium Potassium Chloride Carbon Dioxide Anion Gap BUN Creatinine POC Glucometer 96 Random Glucose Hemoglobin A1c % Calcium Ferritin Creatine Kinase 200 H Creatine Kinase Index 1.0 CK-MB (CK-2) 2.113 Troponin I < 0.02 Triglycerides Cholesterol Total LDL Cholesterol HDL Cholesterol Vitamin B12 Serum Folate 09/30/17 09/30/17 09/30/17 06:00 06:00 06:00 WBC RBC Hgb Hct MCV MCH MCHC RDW Plt Count MPV Sodium 143 Potassium 3.7 Chloride 108 H Carbon Dioxide 29 Anion Gap 6 L BUN 10 Creatinine 0.5 L POC Glucometer Random Glucose 124 H Hemoglobin A1c % 8.2 H Calcium 9.0 Ferritin Creatine Kinase 160 Creatine Kinase Index 1.3 CK-MB (CK-2) 2.174 Troponin I < 0.02 Triglycerides 106 Cancelled Cholesterol 113 Cancelled Total LDL Cholesterol 54 Cancelled HDL Cholesterol 51 Cancelled Vitamin B12 Serum Folate 12 Cancelled 09/30/17 09/30/17 09/30/17 09:25 09:25 11:07 WBC RBC Hgb Hct MCV MCH MCHC RDW Plt Count MPV Sodium Potassium Chloride Carbon Dioxide Anion Gap BUN Creatinine POC Glucometer 152 Random Glucose Hemoglobin A1c % Calcium Ferritin 130.161 Creatine Kinase 151 Creatine Kinase Index 1.2 CK-MB (CK-2) 1.874 Troponin I < 0.02 Triglycerides Cholesterol Total LDL Cholesterol HDL Cholesterol Vitamin B12 552 Serum Folate 09/30/17 09/30/17 16:56 21:03 WBC RBC Hgb Hct MCV MCH MCHC RDW Plt Count MPV Sodium Potassium Chloride Carbon Dioxide Anion Gap BUN Creatinine POC Glucometer 130 211 Random Glucose Hemoglobin A1c % Calcium Ferritin Creatine Kinase Creatine Kinase Index CK-MB (CK-2) Troponin I Triglycerides Cholesterol Total LDL Cholesterol HDL Cholesterol Vitamin B12 Serum Folate plan: bgm qid novolog insulin doses levemir 25 units am levemir 15 units hs continue crestor 10mg continue getachew inhibitio asa
[2017-10-01 08:08] LABS: SERUM IRON SATURATION 24 % (15-55); TOTAL IRON BINDING CAPACITY 265 ug/dL (250-450); UIBC 202 ug/dL (131-425)
[2017-10-01] MEDS ORDERED: PT OWN MED DRAWER 7, Y5N ONE ×2 (09:44→21:41)
[2017-10-01] MEDS: INSULIN (LEVEMIR) 100 UNITS/ML UNITS SQ SCH (11:02)
[2017-10-01] MEDS: INSULIN SLIDING SCALE (NOVOLOG) 1 VIAL SQ SCH ×4 (11:03→21:53)
[2017-10-01] MEDS: VENLAFAXINE HCL 75 MG E.R. CAPSULES (FP) PO SCH (11:06)
[2017-10-01] MEDS: ROSUVASTATIN CA 10 MG TABLET (FP) PO SCH (11:06)
[2017-10-01] MEDS: LISINOPRIL 10 MG TABLET (FP) PO SCH (11:07)
[2017-10-01] MEDS: ASPIRIN 81 MG CHEWABLE TABLETS PO SCH (11:07)
--- NOTE | 2017-10-01 11:20 | DS ---
Physical Examination Vital Signs: Vital Signs Temperature 97.6 F 10/01/17 06:55 Pulse Rate 90 10/01/17 06:55 Respiratory Rate 20 10/01/17 06:55 Blood Pressure 109/60 10/01/17 06:55 O2 Sat by Pulse Oximetry (%) 97 09/30/17 22:00 Findings/Remarks: PATIENT AWAKE ALERT ABLE TO MAKE DECISIONS DOES NOT WANT A STRESS TEST AT THIS TIME REFUSING ANY WORKUP AND WANTS GO HOME. I EXPLAINED THE RISK IF SHE SUFFERS FROM A MYOCARDIAL INFARCT AND SHE IS AWARE THIS MAY CAUSE SUDDEN CARDIAC . I WILL HAVE CARDIOLOGY SPEAK TO HER BEFORE SHE LEAVES TO TRY TO RECONSIDER STAYING FOR WORKUP OR COMPLETE AN OUTPATIENT. Constitutional: Yes: No Distress Eyes: Yes: WNL HENT: Yes: WNL Neck: Yes: WNL Cardiovascular: Yes: WNL Respiratory: Yes: WNL Gastrointestinal: Yes: WNL Renal/: Yes: WNL Musculoskeletal: Yes: WNL Extremities: Yes: WNL Edema: No Peripheral Pulses WNL: Yes Integumentary: Yes: WNL Wound/Incision: Yes: Clean/Dry Neurological: Yes: WNL ...Motor Strength: WNL Psychiatric: Yes: WNL Labs: CBC, BMP 09/30/17 06:00 09/30/17 06:00 Discharge Summary Reason For Visit: PALPITATIONS/CHEST PAIN Current Active Problems Chest pain (Acute) Controlled diabetes mellitus type 2 with complications (Acute) Diabetes (Acute) [place] cardiac risk >20% in next 10 years (Acute) HTN (hypertension) (Acute) Heart palpitations (Acute) Hyperlipidemia (Acute) - Instructions Referrals: Albin Loo MD [Primary Care Provider] - - Home Medications Comprehensive Discharge Medication List: Ambulatory Orders Aspirin 81 mg PO DAILY 09/29/17 Atenolol [Tenormin -] 25 mg PO DAILY 09/29/17 Desvenlafaxine [Desvenlafaxine ER] 100 mg PO DAILY 09/29/17 Insulin Glulisine [Apidra Solostar] 70 unit SQ HS 09/29/17 Lisinopril 10 mg PO DAILY 09/29/17 Metformin HCl 500 mg PO BID 09/29/17 Olanzapine 12.5 mg PO HS 09/29/17 Rosuvastatin [Crestor -] 10 mg PO DAILY 09/29/17 Sitagliptin Phosphate [Januvia] 100 mg PO DAILY 09/29/17 Nicotine Polacrilex [Nicorelief -] 2 mg BUC Q2H PRN gum 10/01/17 Olanzapine [ZyPREXA -] 12.5 mg PO HS tablet 10/01/17 Olanzapine [Zyprexa -] 12.5 mg PO HS tablet 10/01/17
--- NOTE | 2017-10-01 11:21 | PN ---
Progress Note (short form) - Note Progress Note: AGREEING TO TREADMILL STRESS TEST REFUSING PERSANTINE NUCLEAR STRESS Problem List - Problems (1) Chest pain Code(s): R07.9 - CHEST PAIN, UNSPECIFIED Qualifiers: Chest pain type: chest pain on breathing Qualified Code(s): R07.1 - Chest pain on breathing; R07.81 - Pleurodynia (2) Controlled diabetes mellitus type 2 with complications Code(s): E11.8 - TYPE 2 DIABETES MELLITUS WITH UNSPECIFIED COMPLICATIONS (3) [place] cardiac risk >20% in next 10 years Code(s): Z91.89 - [place] PERSONAL RISK FACTORS, NOT ELSEWHERE CLASSIFIED (4) HTN (hypertension) Code(s): I10 - ESSENTIAL (PRIMARY) HYPERTENSION (5) Heart palpitations Code(s): R00.2 - PALPITATIONS (6) Hyperlipidemia Code(s): E78.5 - HYPERLIPIDEMIA, UNSPECIFIED
--- NOTE | 2017-10-01 11:28 | PN ---
Progress Note, Physician History of Present Illness: 57 year old black female presented complaining of palpitations, chest pain, shortness of breath in the morning. Patient reports that she has a past medical history of coronary artery disease ([place]) with coronary stents (latest 01/2015), psychiatric illness, DM, HTN, hyperlipoidemia; father of [place] in his 50s; mother had CABG in her early 70s. Patient reports that she took 1 baby aspirin this morning. She is a current every day smoker. patient was sent by pmd for admission. patient reports that she was recently admitted for psychiatric illness and was started on Pristiq - Current Medication List Current Medications: Active Medications Aspirin (Asa -) 81 mg PO DAILY [facility] Last Admin: 10/01/17 11:07 Dose: 81 mg Insulin Aspart (Novolog Vial Sliding Scale -) 1 vial SQ ACHS [facility] PRN Reason: Protocol Last Admin: 10/01/17 11:03 Dose: Not Given Insulin Detemir (Levemir Vial) 25 units SQ AM [facility] Last Admin: 10/01/17 11:02 Dose: Not Given Lisinopril (Prinivil) 10 mg PO DAILY [facility] Last Admin: 10/01/17 11:07 Dose: 10 mg Morphine Sulfate (Morphine Sulfate) 1 mg IVPUSH Q4H PRN PRN Reason: PAIN LEVEL 7 - 10 Nicotine Polacrilex (Nicorette Gum -) 2 mg BUC Q2H PRN PRN Reason: NICOTINE REPLACEMENT RX Olanzapine 2.5 mg/ Olanzapine (10 mg) 12.5 mg PO HS [facility] Last Admin: 09/30/17 21:48 Dose: 12.5 mg Rosuvastatin Calcium (Crestor -) 10 mg PO DAILY [facility] Last Admin: 10/01/17 11:06 Dose: 10 mg Venlafaxine HCl (Effexor Xr -) 150 mg PO DAILY [facility] Last Admin: 10/01/17 11:06 Dose: 150 mg - Objective Vital Signs: Vital Signs Temperature 97.6 F 10/01/17 06:55 Pulse Rate 90 10/01/17 06:55 Respiratory Rate 20 10/01/17 06:55 Blood Pressure 109/60 10/01/17 06:55 O2 Sat by Pulse Oximetry (%) 97 09/30/17 22:00 Eyes: Yes: WNL, Conjunctiva Clear, EOM Intact HENT: Yes: WNL, Atraumatic, Normocephalic Neck: Yes: WNL, Supple, Trachea Midline Cardiovascular: Yes: WNL, Regular Rate and Rhythm Respiratory: Yes: WNL, Regular, CTA Bilaterally Gastrointestinal: Yes: WNL, Normal Bowel Sounds Genitourinary: Yes: WNL Musculoskeletal: Yes: WNL Extremities: Yes: WNL Edema: No Integumentary: Yes: WNL Neurological: Yes: WNL, Alert, Oriented ...Motor Strength: WNL Psychiatric: Yes: WNL Labs: CBC, BMP 09/30/17 06:00 09/30/17 06:00 Assessment/Plan - Problems (1) Chest pain Code(s): R07.9 - CHEST PAIN, UNSPECIFIED Qualifiers: Chest pain type: chest pain on breathing Qualified Code(s): R07.1 - Chest pain on breathing; R07.81 - Pleurodynia (2) Heart palpitations Assessment/Plan: f/u on telemetry. Code(s): R00.2 - PALPITATIONS (3) [place] cardiac risk >20% in next 10 years Assessment/Plan: ECHO: low normal LVEF. Stress ECHO Code(s): Z91.89 - OTH PERSONAL RISK FACTORS, NOT ELSEWHERE CLASSIFIED (4) Diabetes Code(s): E11.9 - TYPE 2 DIABETES MELLITUS WITHOUT COMPLICATIONS (5) HTN (hypertension) Code(s): I10 - ESSENTIAL (PRIMARY) HYPERTENSION (6) Hyperlipidemia Assessment/Plan: on rosuvastatin; lipids well-controlled. Code(s): E78.5 - HYPERLIPIDEMIA, UNSPECIFIED
--- NOTE | 2017-10-01 17:12 | DS ---
Physical Examination Vital Signs: Vital Signs Temperature 97.9 F 10/01/17 14:34 Pulse Rate 93 H 10/01/17 14:34 Respiratory Rate 16 10/01/17 14:34 Blood Pressure 120/63 10/01/17 14:34 O2 Sat by Pulse Oximetry (%) 97 09/30/17 22:00 Findings/Remarks: D/W CARDIOLOGY, PATIENT FAILED STRSS/ECHO AND NEEDS CARDIAC CATH D/W PATIENT AND SHE AGREES TO HAVE CARDIAC CATH AT [facility] Constitutional: Yes: Mild Distress Eyes: Yes: WNL HENT: Yes: WNL Neck: Yes: WNL Cardiovascular: Yes: WNL, Pulse Irregular Respiratory: Yes: WNL Gastrointestinal: Yes: WNL Renal/: Yes: WNL Musculoskeletal: Yes: WNL Extremities: Yes: WNL Edema: No Peripheral Pulses WNL: Yes Integumentary: Yes: WNL Wound/Incision: Yes: Clean/Dry Neurological: Yes: WNL ...Motor Strength: WNL Psychiatric: Yes: WNL Labs: CBC, BMP 09/30/17 06:00 09/30/17 06:00 Discharge Summary Reason For Visit: PALPITATIONS/CHEST PAIN Current Active Problems Chest pain (Acute) Controlled diabetes mellitus type 2 with complications (Acute) Diabetes (Acute) [place] cardiac risk >20% in next 10 years (Acute) HTN (hypertension) (Acute) Heart palpitations (Acute) Hyperlipidemia (Acute) Procedures: Principal: STRESS ECHO Hospital Course: ADMITTED CARDIO WORKUP POSITIVE FOR ISCHEMIA NEEDS CARDIAC CATH, TRANSFERRING TO [facility] Condition: Fair - Instructions Referrals: Albin Loo MD [Primary Care Provider] - Disposition: TRANSFER ACUTE CARE/OTHER HOSP - Home Medications Comprehensive Discharge Medication List: Ambulatory Orders Aspirin 81 mg PO DAILY 09/29/17 Atenolol [Tenormin -] 25 mg PO DAILY 09/29/17 Desvenlafaxine [Desvenlafaxine ER] 100 mg PO DAILY 09/29/17 Insulin Glulisine [Apidra Solostar] 70 unit SQ HS 09/29/17 Lisinopril 10 mg PO DAILY 09/29/17 Metformin HCl 500 mg PO BID 09/29/17 Olanzapine 12.5 mg PO HS 09/29/17 Rosuvastatin [Crestor -] 10 mg PO DAILY 09/29/17 Sitagliptin Phosphate [Januvia] 100 mg PO DAILY 09/29/17 Nicotine Polacrilex [Nicorelief -] 2 mg BUC Q2H PRN gum 10/01/17 Olanzapine [ZyPREXA -] 12.5 mg PO HS tablet 10/01/17 Olanzapine [Zyprexa -] 12.5 mg PO HS tablet 10/01/17
[2017-10-01] MEDS: OLANZAPINE PO SCH (21:53)
[2017-10-02] MEDS: INSULIN (LEVEMIR) 100 UNITS/ML UNITS SQ SCH (06:22)
[2017-10-02] MEDS: INSULIN SLIDING SCALE (NOVOLOG) 1 VIAL SQ SCH (06:22)
[2017-10-02 07:20] LABS: INR 0.96 (0.82-1.09); PROTHROMBIN TIME (PATIENT) 10.9 SEC (9.7-13.0)
--- NOTE | 2017-10-02 08:30 | DS ---
Physical Examination Vital Signs: Vital Signs Temperature 98.4 F 10/02/17 06:00 Pulse Rate 101 H 10/02/17 06:00 Respiratory Rate 18 10/02/17 06:00 Blood Pressure 121/62 10/02/17 06:00 O2 Sat by Pulse Oximetry (%) 97 10/01/17 21:00 Findings/Remarks: no cp Cardiovascular: Yes: S1, S2. No: Murmur Respiratory: Yes: Regular, CTA Bilaterally Gastrointestinal: Yes: Normal Bowel Sounds, Soft. No: Tenderness Labs: CBC, BMP 09/30/17 06:00 09/30/17 06:00 Discharge Summary Reason For Visit: PALPITATIONS/CHEST PAIN Current Active Problems Chest pain (Acute) Controlled diabetes mellitus type 2 with complications (Acute) Diabetes (Acute) [place] cardiac risk >20% in next 10 years (Acute) HTN (hypertension) (Acute) Heart palpitations (Acute) Hyperlipidemia (Acute) Hospital Course: 57 year old black female presented complaining of palpitations, chest pain, shortness of breath in the morning. Patient reports that she has a past medical history of coronary artery disease ([place]) with coronary stents (latest 01/2015), psychiatric illness, DM, HTN, hyperlipoidemia; father of [place] in his 50s; mother had CABG in her early 70s. Patient reports that she took 1 baby aspirin this morning. She is a current every day smoker. patient was sent by pmd for admission. patient reports that she was recently admitted for psychiatric illness and was started on Pristiq PMD: DR. Loo Cardiology: Dr. Ben Cervantes - History Source History Provided By: Patient - Past Medical History Cardio/Vascular: Yes: CAD, HTN, Hyperlipdemia, [place] Reproductive: Yes: Postmenopausal ...: No Psych: Yes: Depression, Other (Multiple in-patient psychiatric hospitalizations for MDD; last 09/04- 24 at [facility] for suicidal ideation, no prior suicide attemps. Recently started on Pristiq (Desvenlafaxine 100mg daily)) - Past Surgical History Past Surgical History: Yes: Stent # chest pain, TSH wnl. D-dimer not elevated. Trop negative -Give ASA 325mg PO now, c/w home ASA 81 daily and Atenolol 25mg daily -continuous telemetry monitoring -Cardiology consultation noted -2D ECHO EF 49% -Morphine and nitropaste PRN for chest pain -stress test positive for ischemia--for cath #HTN - c/w home lisinopril #IDDM -Check A1c 8 -c/w home Glargine 70U HS -BGM/ISS ACHS #hyperlipidemia - c/w home statin #major depression disorder -c/w home meds #normocytic anemia -Check B12, Folate, Fe Studies -Advised colonoscopy screening as never had one Condition: Fair - Instructions Referrals: Albin Loo MD [Primary Care Provider] - Disposition: TRANSFER ACUTE CARE/OTHER HOSP - Home Medications Comprehensive Discharge Medication List: Ambulatory Orders Aspirin 81 mg PO DAILY 09/29/17 Atenolol [Tenormin -] 25 mg PO DAILY 09/29/17 Desvenlafaxine [Desvenlafaxine ER] 100 mg PO DAILY 09/29/17 Lisinopril 10 mg PO DAILY 09/29/17 Olanzapine 12.5 mg PO HS 09/29/17 Rosuvastatin [Crestor -] 10 mg PO DAILY 09/29/17 Insulin Sliding Scale [Novolog Vial Sliding Scale -] 1 vial SQ ACHS units 10/01 Nicotine Polacrilex [Nicorelief -] 2 mg BUC Q2H PRN gum 10/01/17 Olanzapine [ZyPREXA -] 12.5 mg PO HS tablet 10/01/17 Olanzapine [Zyprexa -] 12.5 mg PO HS tablet 10/01/17 Insulin (Levemir) [Levemir Vial] 25 units SQ AM ml 10/02/17 Insulin (Levemir) [Levemir Vial] 70 units SQ HS ml 10/02/17
--- NOTE | 2017-10-02 09:55 | PN ---
Progress Note, Physician - Current Medication List Current Medications: Active Medications Aspirin (Asa -) 81 mg PO DAILY [facility] Last Admin: 10/01/17 11:07 Dose: 81 mg Atenolol (Tenormin -) 25 mg PO DAILY [facility] Insulin Aspart (Novolog Vial Sliding Scale -) 1 vial SQ ACHS [facility] PRN Reason: Protocol Last Admin: 10/02/17 06:22 Dose: Not Given Insulin Detemir (Levemir Vial) 25 units SQ AM [facility] Last Admin: 10/02/17 06:22 Dose: Not Given Lisinopril (Prinivil) 10 mg PO DAILY [facility] Last Admin: 10/01/17 11:07 Dose: 10 mg Morphine Sulfate (Morphine Sulfate) 1 mg IVPUSH Q4H PRN PRN Reason: PAIN LEVEL 7 - 10 Nicotine Polacrilex (Nicorette Gum -) 2 mg BUC Q2H PRN PRN Reason: NICOTINE REPLACEMENT RX Olanzapine 2.5 mg/ Olanzapine (10 mg) 12.5 mg PO HS [facility] Last Admin: 10/01/17 21:53 Dose: 12.5 mg Rosuvastatin Calcium (Crestor -) 10 mg PO DAILY [facility] Last Admin: 10/01/17 11:06 Dose: 10 mg Venlafaxine HCl (Effexor Xr -) 150 mg PO DAILY [facility] Last Admin: 10/01/17 11:06 Dose: 150 mg - Objective Vital Signs: Vital Signs Temperature 98.4 F 10/02/17 06:00 Pulse Rate 101 H 10/02/17 06:00 Respiratory Rate 18 10/02/17 06:00 Blood Pressure 121/62 10/02/17 06:00 O2 Sat by Pulse Oximetry (%) 97 10/01/17 21:00 Labs: CBC, BMP 09/30/17 06:00 09/30/17 06:00 INR, PTT INR 0.96 (0.82-1.09) 10/02/17 05:35 Problem List - Problems (1) Chest pain Code(s): R07.9 - CHEST PAIN, UNSPECIFIED Qualifiers: Chest pain type: chest pain on breathing Qualified Code(s): R07.1 - Chest pain on breathing; R07.81 - Pleurodynia (2) Heart palpitations Code(s): R00.2 - PALPITATIONS (3) [place] cardiac risk >20% in next 10 years Code(s): Z91.89 - OTH PERSONAL RISK FACTORS, NOT ELSEWHERE CLASSIFIED (4) Diabetes Code(s): E11.9 - TYPE 2 DIABETES MELLITUS WITHOUT COMPLICATIONS (5) HTN (hypertension) Code(s): I10 - ESSENTIAL (PRIMARY) HYPERTENSION (6) Hyperlipidemia Code(s): E78.5 - HYPERLIPIDEMIA, UNSPECIFIED
[2017-10-02] MEDS ORDERED: ATENOLOL 25 MG TABLET (FP) PO SCH (10:00)
[2017-10-02] MEDS: ASPIRIN 81 MG CHEWABLE TABLETS PO SCH (10:19)
[2017-10-02] MEDS: LISINOPRIL 10 MG TABLET (FP) PO SCH (10:19)
[2017-10-02] MEDS: VENLAFAXINE HCL 75 MG E.R. CAPSULES (FP) PO SCH (10:19)
[2017-10-02] MEDS: ROSUVASTATIN CA 10 MG TABLET (FP) PO SCH (10:19)
[2017-10-02] MEDS ORDERED: CLOPIDOGREL BISULFATE 300 MG TABLET PO ONE (10:24)
[2017-10-02 12:52] VITALS: BP 136/81; PULSE 94; TEMP 98.5
== END 2017-10-02 13:13 | disposition short-term general hospital (02) | DRG 303 ==
LOC: JER 18:15 → J4S 21:14
PROVIDERS: ADMIT Internal Medicine; ATTEND Family Medicine
DX: I99.8 Other disorder of circulatory system (principal); R07.89 Other chest pain; F32.9 Major depressive disorder, single episode, unspecified; Z79.4 Long term (current) use of insulin; I25.10 Atherosclerotic heart disease of native coronary artery without angina pectoris; E78.5 Hyperlipidemia, unspecified; D64.9 Anemia, unspecified; F17.210 Nicotine dependence, cigarettes, uncomplicated; R00.2 Palpitations; I25.2 Old myocardial infarction; I10 Essential (primary) hypertension; J44.9 Chronic obstructive pulmonary disease, unspecified; E11.40 Type 2 diabetes mellitus with diabetic neuropathy, unspecified
CPT/HCPCS: 36415; 71046-TC-FY; 80048; 80053; 80061; 81003; 81015; 82550; 82553; 82607; 82728; 82746; 82962; 83036; 83540; 83550; 83721; 84443; 84484; 85025; 85027; 85379; 85610; 87086; 93005; 93010; 93306-TC; 93351; 99284-25

== ENCOUNTER 2017-12-08 21:46 | Observation (INO) | payer OTHER ==
--- NOTE | 2017-12-09 00:01 | PDOC ---
History of Present Illness - General Chief Complaint: Lightheaded Stated Complaint: PCP ADMIT Time Seen by Provider: 12/08/17 23:28 - History of Present Illness Initial Comments: 12/09/17 00:00 57 yo F with h/o HLD, HTN, IDDM, CAD stent placement x 3, who p/w SOB, and nausea. Patient reports acute onset of SOB at rest and beginning this AM. Also endorses [place]. 3 days of nausea with one episode of vomiting x 1 ( now resolved) 3 days ago.Reports sharp unremitting LLQ abdominal pain beginning today with absent BPR, postrpandial pain. No identifiable triggers or alleviators to symptoms. Also endorses 3 days of unremitting lightheadedness. Patient denies N/V, F,C, CP, wheezing, orthopnea, PND, palpitations, leg swelling/pain, hematemesis, urinary complaints, abdominal pain, BPR, diarrhea, constipation, sensory changes. PMHx: as noted above. H/o multiple stents. Recent stent "unconcluded" 10-02-17. Patient potential candidate for CABG. Seen by Dr. Loo today and referred to ED for admit. Denies h/o abdominal surgery. Patient scheduled for cardiac catherization this Friday (12-12-17) at [facility]. ROS: as noted SHx: tobacco use 1 ppd x 10 years. Denies Etoh, IVDA. PMD: Eze Past History - Past Medical History Allergies/Adverse Reactions: Allergies Allergy/AdvReac Type Severity Reaction Status Date / Time No Known Allergies Allergy Verified 12/08/17 21:51 Home Medications: Ambulatory Orders Aspirin 81 mg PO DAILY 09/29/17 Atenolol [Tenormin -] 25 mg PO DAILY 09/29/17 Desvenlafaxine [Desvenlafaxine ER] 100 mg PO DAILY 09/29/17 Lisinopril 10 mg PO DAILY 09/29/17 Olanzapine [Zyprexa -] 12.5 mg PO HS tablet 10/01/17 Cardiac Disorders: Yes (CAD, 3 STENTS) COPD: No Diabetes: Yes HTN: Yes Hypercholesterolemia: Yes Psychiatric Problems: Yes - Surgical History Abdominal Surgery: Yes (hernia repair) Cardiac Surgery: Yes (3 STENTS) Orthopedic Surgery: Yes (Left ankle, Left rotator cuff) - Suicide/Smoking/Psychosocial Hx Smoking History: Current every day smoker Have you smoked in the past 12 months: Yes Number of Cigarettes Smoked Daily: 10 Information on smoking cessation initiated: Yes 'Breaking Loose' booklet given: 12/08/17 Hx Alcohol Use: Yes (social) Review of Systems - Review of Systems Comments:: 12/09/17 00:00 GENERAL/CONSTITUTIONAL: No fever or chills. No weakness. HEAD, EYES, EARS, NOSE AND THROAT: No change in vision. No ear pain or discharge. No sore throat. CARDIOVASCULAR: + SOB. No chest pain RESPIRATORY: No cough, wheezing, or hemoptysis. GASTROINTESTINAL: + nausea. No vomiting, diarrhea or constipation. GENITOURINARY: No dysuria, frequency, or change in urination. MUSCULOSKELETAL: No joint or muscle swelling or pain. No neck or back pain. SKIN: No rash NEUROLOGIC: No headache, vertigo, loss of consciousness, or change in strength/ sensation. ENDOCRINE: No increased thirst. No abnormal weight change HEMATOLOGIC/LYMPHATIC: No anemia, easy bleeding, or history of blood clots. ALLERGIC/IMMUNOLOGIC: No hives or skin allergy. = *Physical Exam - Vital Signs Last Vital Signs Temp Pulse Resp BP Pulse Ox 98.7 F 100 H 18 122/69 99 12/08/17 21:49 12/08/17 21:49 12/08/17 21:49 12/08/17 21:49 12/08/17 21:49 - Physical Exam Comments: 12/09/17 00:00 GENERAL: Awake, alert, and fully oriented, in no acute distress HEAD: No signs of trauma, normocephalic, atraumatic EYES: PERRLA, EOMI, sclera anicteric, conjunctiva clear ENT: Auricles normal inspection, hearing grossly normal, nares patent, oropharynx clear without exudates. Moist mucosa NECK: Normal ROM, supple, no lymphadenopathy, JVD, or masses LUNGS: + Exp lung sounds. No distress, speaks full sentences. HEART: Regular rate and rhythm, normal S1 and S2, no murmurs, rubs or gallops, peripheral pulses normal and equal bilaterally. ABDOMEN: + LLQ ttp. NDS, normoactive bowel sounds. No guarding, no rebound. No masses. Neg CVA ttp. EXTREMITIES : Normal inspection, Normal range of motion, no edema. No clubbing or cyanosis. NEUROLOGICAL: Cranial nerves II through XII grossly intact. Normal speech, normal gait, no focal sensorimotor deficits SKIN: Warm, Dry, normal turgor, no rashes or lesions noted ED Treatment Course - LABORATORY CBC & Chemistry Diagram: 12/09/17 00:30 12/09/17 00:30 Medical Decision Making - Medical Decision Making 12/09/17 00:25 57 yo F with h/o HLD, HTN, IDDM, CAD stent placement x 3, who p/w SOB, and nausea. VSS, AF, A&OX3. ACS/GA r/o. R/o PE. Low risk PE based on Wells criteria. Patient with no clinical s/s fluid/volume overload. Low suspicion CHF. + LLQ ttp. Will consider diverticulitis, colitis, cystitis. Low suspicion pyelonephritis, ovarian torsion. ED Course: CBC, CMP, cardiac Pr., UA. Urine Cx. EKG, CXR Zofrsenia, NS 12/09/17 01:20 EKG: NSR with absent ANI, STD. Q waves lead III, AvF. TWI I,AvL. CBC: Unremarkable 12/09/17 02:57 BS~347 Na~130 12/09/17 03:29 Patient admitted to tele/obs Dr. Mcfadden. *DC/Admit/Observation/Transfer Diagnosis at time of Disposition: Shortness of breath - Discharge Dispostion Condition at time of disposition: Stable Decision to Admit order: Yes - Referrals Referrals: Albin Loo MD [Primary Care Provider] - - Patient Instructions Additional Instructions: Please return to the emergency department with any new or worsening symptoms or concerns. Please follow up with your primary care physician within 72 hours. - Post Discharge Activity - Attestations Physician Attestion: 12/09/17 00:01 I attest to the information provided in this note.
[2017-12-09] MEDS ORDERED: ONDANSETRON 4 MG/2 ML VIAL IVPB ONE (00:27)
[2017-12-09] MEDS ORDERED: SODIUM CHLORIDE 1,000 ML IV STA (00:28)
--- NOTE | 2017-12-09 00:34 | PDOC ---
Attending Attestation - HPI HPI: 12/09/17 01:19 Patient is a 57 year old male with a significant past medical history of HLD, HTN, IDDM, who presents to the ED with complaints of shortness of breath that began earlier today. Patient reports experiencing intermittent nausea and 1 episode of vomiting that began x3 days ago. He reports seeing his pcp this afternoon who stated he was concerned of the shortness of breath the patient was experiencing while at rest due to his past coronary disease. Patient physician advised patient to come into the ED for further evaluation and admittance to observation.Patient reports experiencing associated Left lower quadrant abdominal pain. Denies chest pain, Sob. Denies nausea, vomiting. Denies fevers, chills. Denies contact with sick individuals, out of state travelling. Denies head trauma, vision changes, loss of consciousness. Denies trauma to affected area. Denies dysuria, hematuria. Denies constipation, diarrhea. Denies any other symptoms. Allergies: None Social history: Current everyday smoker. No alcohol. No illicit drugs. Surgical history: December 2014 - 1x Stent (by Dr. Omer Roberts at [facility]) and 2x stents in 2013, 2014 - L ankle fracture repair, 2004- L rotator cuff repair, 1992 - umbilical hernia repair PMD: Dr. hussein - Physicial Exam PE: 12/09/17 02:42 GENERAL: Well-appearing, well-nourished. No apparent distress. HEENT: Normocephalic, atraumatic. PERRL, EOM intact. CARDIOVASCULAR: Normal S1, S2. Regular rate and rhythm. PULMONARY: Clear to auscultation bilaterally. ABDOMEN: +Left lower quadrant tenderness. No rebound. No guarding. Soft, non-distended, non-tender. EXTREMITIES: Normal ROM in all four extremities. No gross deformities. SKIN: Warm, dry. No rash NEUROLOGICAL: No focal neurological deficits. <Pato Arzola - Last Filed: 12/09/17 02:41> - Resident Resident Name: Raza Henry - ED Attending Attestation I have performed the following: I have examined & evaluated the patient, The case was reviewed & discussed with the resident, I agree w/resident's findings & plan, Exceptions are as noted - Medical Decision Making 12/09/17 19:17 Pt admitted for further evaluation and care <Uche Mercado - Last Filed: 12/09/17 19:17>
[2017-12-09 00:58] LABS: BASO % 0.9 % (0-2.0); HEMATOCRIT 41.7 % (32.4-45.2); HEMOGLOBIN 13.4 GM/dL (10.7-15.3); MCH 26.4 pg (25.7-33.7); MCHC 32.2 g/dl (32.0-36.0); MEAN CELL VOLUME 82.1 fl (80-96); MEAN PLT VOLUME 9.7 fl (7.5-11.1); MONO % 7.5 % (3.8-10.2); NEUT % 52.6 % (42.8-82.8); PLATELET COUNT 179 K/MM3 (134-434); RBC 5.08 M/mm3 (3.60-5.2); RDW 13.8 % (11.6-15.6); WHITE BLOOD COUNT 6.5 K/mm3 (4.0-10.0)
[2017-12-09 01:10] LABS: INR 0.99 (0.82-1.09); PROTHROMBIN TIME (PATIENT) 11.2 SEC (9.7-13.0)
[2017-12-09 01:11] LABS: URINE APPEARANCE CLEAR; URINE BILIRUBIN NEGATIVE (<2.0 mg/dL); URINE COLOR LTYELLOW; URINE GLUCOSE (UA) 3+ (NEGATIVE); URINE KETONE NEGATIVE (NEGATIVE); URINE LEUK ESTERASE NEGATIVE (NEGATIVE); URINE NITRITE NEGATIVE (NEGATIVE); URINE PROTEIN NEGATIVE (NEGATIVE); URINE UROBILINOGEN NEGATIVE mg/dL (0.2-1.0)
[2017-12-09 01:22] LABS: ALBUMIN 3.7 g/dl (3.4-5.0); ANION GAP 6 (8-16); BILIRUBIN,TOTAL 0.3 mg/dL (0.2-1.0); BLOOD UREA NITROGEN 26 mg/dL (7-18); CALCIUM 9.9 mg/dL (8.5-10.1); CHLORIDE 95 mmol/L (98-107); CO2 29 mmol/L (21-32); SGPT/ALT 41 U/L (12-78); SODIUM 130 mmol/L (136-145); TOT PROT 7.1 g/dl (6.4-8.2)
[2017-12-09 01:25] LABS: ALK PHOS 75 U/L (45-117)
[2017-12-09 01:42] LABS: SGOT/AST 42 U/L (15-37)
[2017-12-09 01:43] LABS: GLUCOSE,RANDOM 347 mg/dL (74-106); POTASSIUM 5.8 mmol/L (3.5-5.1)
--- NOTE | 2017-12-09 04:32 | HP ---
CHIEF COMPLAINT: SOB/STEVENSON PCP: Eze HISTORY OF PRESENT ILLNESS: This is a 57 year old female with a past medical history of HTN, HLD, CAD, IDDM who presented to the ED with SOB/STEVENSON since yesterday (12/08). She also reports nausea and LLQ pain x 3 days which is no longer present at time of exam. Recent cardiac cath on 10/02/17, potential candidate for CABG as per ED resident note. Scheduled for cardiac cath on 12/12/17. ER course was notable for: (1) troponin <0.02 (2) CT abd/pelvis without acute findings (3) ECG without acute changes Recent Travel: pt denies PAST MEDICAL HISTORY: HTN, HLD, CAD, IDDM, Depression (multiple psychiatric hospitalizations, most recent 08/2017) PAST SURGICAL HISTORY: stent x3 left ankle surgery L rotator cuff surgery hernia repair Social History: Smoking: pt denies Alcohol: pt denies Drugs: pt denies Family History: mother, father and siblings alive and well Allergies No Known Allergies Allergy (Verified 12/08/17 21:51) HOME MEDICATIONS: 3 Medication Instructions Recorded Aspirin 81 mg PO DAILY 09/29/17 Atenolol [Tenormin -] 25 mg PO DAILY 09/29/17 Desvenlafaxine [Desvenlafaxine ER] 100 mg PO DAILY 09/29/17 Lisinopril 10 mg PO DAILY 09/29/17 Olanzapine [Zyprexa -] 12.5 mg PO HS tablet 10/01/17 REVIEW OF SYSTEMS CONSTITUTIONAL: Absent: fever, chills, diaphoresis, generalized weakness, malaise, loss of appetite, weight change HEENT: Absent: rhinorrhea, nasal congestion, throat pain, throat swelling, difficulty swallowing, mouth swelling, ear pain, eye pain, visual changes CARDIOVASCULAR: Absent: chest pain, syncope, palpitations, irregular heart rate, lightheadedness , peripheral edema RESPIRATORY: Present: shortness of breath, dyspnea with exertion Absent: cough, orthopnea, wheezing, stridor, hemoptysis GASTROINTESTINAL: Present: abdominal pain, nausea, vomiting Absent: abdominal distension, diarrhea, constipation, melena, hematochezia GENITOURINARY: Absent: dysuria, frequency, urgency, hesitancy, hematuria, flank pain, genital pain MUSCULOSKELETAL: Absent: myalgia, arthralgia, joint swelling, back pain, neck pain SKIN: Absent: rash, itching, pallor HEMATOLOGIC/IMMUNOLOGIC: Absent: easy bleeding, easy bruising, lymphadenopathy, frequent infections ENDOCRINE: Absent: unexplained weight gain, unexplained weight loss, heat intolerance, cold intolerance NEUROLOGIC: Absent: headache, focal weakness or paresthesias, dizziness, unsteady gait, seizure, mental status changes, bladder or bowel incontinence PSYCHIATRIC: Absent: anxiety, depression, suicidal or homicidal ideation, hallucinations. PHYSICAL EXAMINATION Vital Signs - 24 hr 3 12/08/17 21:49 Temperature 98.7 F Pulse Rate 100 H Respiratory 18 Rate Blood Pressure 122/69 O2 Sat by Pulse 99 Oximetry (%) GENERAL: Awake, alert, and fully oriented, in no acute distress. HEAD: Normal with no signs of trauma. EYES: Pupils equal, round and reactive to light, extraocular movements intact, sclera anicteric, conjunctiva clear. No lid lag. EARS, NOSE, THROAT: Ears normal, nares patent, oropharynx clear without exudates. Moist mucous membranes. NECK: Normal range of motion, supple without lymphadenopathy, JVD, or masses. LUNGS: Breath sounds equal, clear to auscultation bilaterally. No wheezes, and no crackles. No accessory muscle use. HEART: Regular rate and rhythm, normal S1 and S2 without murmur, rub or gallop. ABDOMEN: Soft, nontender, not distended, normoactive bowel sounds, no guarding, no rebound, no masses. No hepatomegaly or splenomegaly. MUSCULOSKELETAL: Normal range of motion at all joints. No bony deformities or tenderness. No CVA tenderness. UPPER EXTREMITIES: 2+ pulses, warm, well-perfused. No cyanosis. No clubbing. No peripheral edema. LOWER EXTREMITIES: 2+ pulses, warm, well-perfused. No calf tenderness. No peripheral edema. NEUROLOGICAL: Cranial nerves II-XII intact. Normal speech. Normal gait. PSYCHIATRIC: Cooperative. Good eye contact. Appropriate mood and affect. SKIN: Warm, dry, normal turgor, no rashes or lesions noted, normal capillary refill. Laboratory Results - last 24 hr 3 12/09/17 12/09/17 12/09/17 00:30 00:30 00:30 WBC 6.5 RBC 5.08 Hgb 13.4 Hct 41.7 D MCV 82.1 MCH 26.4 MCHC 32.2 RDW 13.8 D Plt Count 179 MPV 9.7 Absolute Neuts (auto) 3.4 Neutrophils % 52.6 Lymphocytes % 39.0 D Monocytes % 7.5 Eosinophils % 0.0 Basophils % 0.9 Nucleated RBC % 0 PT with INR 11.20 INR 0.99 Sodium Potassium Chloride Carbon Dioxide Anion Gap BUN Creatinine Creat Clearance w eGFR Random Glucose Calcium Total Bilirubin AST ALT Alkaline Phosphatase Creatine Kinase 180 Creatine Kinase Index 0.7 CK-MB (CK-2) 1.27 Troponin I < 0.02 Total Protein Albumin Urine Color Urine Appearance Urine pH Ur Specific Basom Urine Protein Urine Glucose (UA) Urine Ketones Urine Blood Urine Nitrite Urine Bilirubin Urine Urobilinogen Ur Leukocyte Esterase 3 12/09/17 12/09/17 00:30 01:00 WBC RBC Hgb Hct MCV MCH MCHC RDW Plt Count MPV Absolute Neuts (auto) Neutrophils % Lymphocytes % Monocytes % Eosinophils % Basophils % Nucleated RBC % PT with INR INR Sodium 130 L Potassium 5.8 H Chloride 95 L Carbon Dioxide 29 Anion Gap 6 L BUN 26 H Creatinine 1.0 Creat Clearance w eGFR 56.75 Random Glucose 347 H* Calcium 9.9 Total Bilirubin 0.3 AST 42 H ALT 41 Alkaline Phosphatase 75 Creatine Kinase Creatine Kinase Index CK-MB (CK-2) Troponin I Total Protein 7.1 Albumin 3.7 Urine Color Ltyellow Urine Appearance Clear Urine pH 5.0 Ur Specific Basom 1.030 Urine Protein Negative Urine Glucose (UA) 3+ H Urine Ketones Negative Urine Blood Negative Urine Nitrite Negative Urine Bilirubin Negative Urine Urobilinogen Negative Ur Leukocyte Esterase Negative ECG Normal sinus rhythm vent rate 91, QTC 462 TWI lead 1, aVL Q waves lead 3, aVF Radiology Reports CT abdomen and pelvis without contrast 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 Multiple pelvic phleboliths but no definite ureteral stones. No obstructive uropathy. No bladder calculi. No bowel obstruction, colitis, free fluid or free air. Normal appendix. Scattered diverticula colon Unremarkable pancreas and gallbladder. THIS DOCUMENT HAS BEEN ELECTRONICALLY SIGNED Aileen Vasques M.D. 12/09/2017 02:03 EST ASSESSMENT/PLAN: 57yF with PMH HTN, HLD, CAD, IDDM, Depression (multiple psychiatric hospitalizations, most recent 08/2017) presented to the ED with STEVENSON, SOB, nausea , vomiting. SOB/? chest pain equivalent - admit to tele - trend cardiac enzymes, neg x 1 - cardiology consult, defer to PCP Abdominal pain/nausea/vomiting - now resolved. CT without acute findings on prelim read, follow final reading HTN/HLD/CAD - cont home meds: ASA, Atenolol, lisinopril. unclear why pt not on a statin IDDM with hyperglycemia - pt on tresiba 70uHS at home, change to formulary levemir 35 BID - BGM AC/HS with novolog sliding scale Major Depressive Disorder - cont home meds: pristiq, zyprexa DVT PPX - heparin deferred, anticipated LOS less than 48h FEN - tolerating po - BMP in am - diabetic, sodium controlled diet as tolerated Dispo: pt currently requires further observation. Visit type - Emergency Visit Emergency Visit: Yes ED Registration Date: 12/08/17 Care time: The patient presented to the Emergency Department on the above date and was hospitalized for further evaluation of their emergent condition. - New Patient This patient is new to me today: Yes Date on this admission: 12/09/17 - Critical Care Critical Care patient: No Hospitalist Screening - Colonoscopy Questionnaire Colonoscopy Questionnaire: Colonoscopy Questionnaire - Patient: 50 - 75 years old and never had a screening colonoscopy: Yes History of colon or rectal polyps, or CA: No History of IBD, Crohn's disease or UC: No History of abdominal radiation therapy as a child: No - Relative: 1 with colon or rectal CA, or polyps at age 60 or younger: No Colon or rectal CA diagnosed at age 45 or younger: No Multiple relatives with colon or rectal CA: No - Outcome: Screening Result: Positive Screen
[2017-12-09] MEDS ORDERED: INSULIN (NOVOLOG) ASPART 100 UNITS/ML 10ML VIAL SQ ONE (04:43)
[2017-12-09 05:09] LABS: ALBUMIN 3.4 g/dl (3.4-5.0); ALK PHOS 66 U/L (45-117); ANION GAP 6 (8-16); BILIRUBIN,TOTAL 0.2 mg/dL (0.2-1.0); BLOOD UREA NITROGEN 21 mg/dL (7-18); CALCIUM 9.5 mg/dL (8.5-10.1); CHLORIDE 99 mmol/L (98-107); CO2 29 mmol/L (21-32); CREATININE 0.8 mg/dL (0.55-1.02); POTASSIUM 4.1 mmol/L (3.5-5.1); SGOT/AST 16 U/L (15-37); SGPT/ALT 35 U/L (12-78); SODIUM 134 mmol/L (136-145); TOT PROT 6.2 g/dl (6.4-8.2)
[2017-12-09 05:10] LABS: GLUCOSE,RANDOM 313 mg/dL (74-106)
[2017-12-09] MEDS: INSULIN (LEVEMIR) 100 UNITS/ML UNITS SQ SCH ×2 (06:25→18:30)
[2017-12-09] MEDS: INSULIN SLIDING SCALE (NOVOLOG) 1 VIAL SQ SCH ×4 (06:25→21:17)
[2017-12-09] MEDS ORDERED: INSULIN (NOVOLOG) ASPART 100 UNITS/ML 10ML VIAL ONE (06:30)
[2017-12-09 08:00] LABS: BASO % 0.8 % (0-2.0); HEMATOCRIT 38.1 % (32.4-45.2); HEMOGLOBIN 12.3 GM/dL (10.7-15.3); LYMPH % 42.8 % (8-40); MCH 26.4 pg (25.7-33.7); MCHC 32.3 g/dl (32.0-36.0); MEAN CELL VOLUME 81.5 fl (80-96); MEAN PLT VOLUME 9.2 fl (7.5-11.1); MONO % 6.7 % (3.8-10.2); NEUT % 49.7 % (42.8-82.8); PLATELET COUNT 153 K/MM3 (134-434); RBC 4.68 M/mm3 (3.60-5.2); RDW 13.6 % (11.6-15.6); WHITE BLOOD COUNT 5.1 K/mm3 (4.0-10.0)
[2017-12-09 08:31] LABS: ANION GAP 6 (8-16); BLOOD UREA NITROGEN 20 mg/dL (7-18); CALCIUM 9.3 mg/dL (8.5-10.1); CHLORIDE 100 mmol/L (98-107); CO2 30 mmol/L (21-32); GLUCOSE,RANDOM 255 mg/dL (74-106); MAGNESIUM 1.6 mg/dL (1.8-2.4); POTASSIUM 3.8 mmol/L (3.5-5.1); SODIUM 136 mmol/L (136-145)
[2017-12-09 08:37] LABS: CREATININE 0.8 mg/dL (0.55-1.02); PHOSPHOROUS 3.1 mg/dL (2.5-4.9)
--- NOTE | 2017-12-09 08:51 | PN ---
Progress Note, Physician History of Present Illness: 57 year old female with a past medical history of HTN, HLD, CAD, IDDM who presented to the ED with SOB/STEVENSON since yesterday (12/08). She also reports nausea and LLQ pain x 3 days which is no longer present at time of exam. Recent cardiac cath on 10/02/17, potential candidate for CABG? Scheduled for cardiac cath on 12/12/17. This am no cp,sob or abd pain - Current Medication List Current Medications: Active Medications Aspirin (Asa -) 81 mg PO DAILY [facility] Atenolol (Tenormin -) 25 mg PO DAILY [facility] Insulin Aspart (Novolog Vial Sliding Scale -) 1 vial SQ ACHS [facility]; Protocol Last Admin: 12/09/17 06:25 Dose: 6 units Insulin Detemir (Levemir Vial) 35 units SQ [facility] Last Admin: 12/09/17 06:25 Dose: 35 units Lisinopril (Prinivil) 10 mg PO DAILY [facility] Non-Formulary Medication (Desvenlafaxine [Desvenlafaxine Er]) 100 mg PO DAILY [facility] Olanzapine (Zyprexa -) 12.5 mg PO HS [facility] - Objective Vital Signs: Vital Signs Temperature 98.1 F 12/09/17 06:00 Pulse Rate 96 H 12/09/17 06:00 Respiratory Rate 18 12/09/17 06:00 Blood Pressure 148/84 12/09/17 06:00 O2 Sat by Pulse Oximetry (%) 97 12/09/17 06:00 Cardiovascular: Yes: Regular Rate and Rhythm Respiratory: Yes: Cough, Diminished, On Nasal O2 Gastrointestinal: Yes: Normal Bowel Sounds, Soft. No: Tenderness Labs: CBC, BMP 12/09/17 07:30 12/09/17 07:30 INR, PTT INR 0.99 (0.82-1.09) 12/09/17 00:30 Problem List - Problems (1) Chest pain Assessment/Plan: SOB/? chest pain equivalent - admit to tele - trend cardiac enzymes - cardiology consult - Obtain previous cath Code(s): R07.9 - CHEST PAIN, UNSPECIFIED Qualifiers: Chest pain type: chest pain on breathing Qualified Code(s): R07.1 - Chest pain on breathing; R07.81 - Pleurodynia (2) Shortness of breath Assessment/Plan: -as above Code(s): R06.02 - SHORTNESS OF BREATH (3) Abdominal pain Assessment/Plan: - Abdominal pain/nausea/vomiting-resolved - now resolved. CT without acute findings on prelim read, follow final reading - GI - tolerating po - BMP in am - diabetic, sodium controlled diet as tolerated Code(s): R10.9 - UNSPECIFIED ABDOMINAL PAIN (4) Diabetes Assessment/Plan: -IDDM with hyperglycemia - pt on tresiba 70uHS at home, change to formulary levemir 35 BID - BGM AC/HS with novolog sliding scale - Endo Code(s): E11.9 - TYPE 2 DIABETES MELLITUS WITHOUT COMPLICATIONS (5) CAD (coronary artery disease) Assessment/Plan: - cont home meds: ASA, Atenolol, lisinopril. unclear why pt not on a statin Code(s): I25.10 - ATHSCL HEART DISEASE OF [place] CORONARY ARTERY W/O ANG PCTRS
[2017-12-09] MEDS ORDERED: DESVENLAFAXINE 100 MG PO SCH (10:00)
[2017-12-09] MEDS: ASPIRIN 81 MG CHEWABLE TABLETS PO SCH (10:40)
[2017-12-09] MEDS: ATENOLOL 25 MG TABLET (FP) PO SCH (10:40)
[2017-12-09] MEDS: LISINOPRIL 10 MG TABLET (FP) PO SCH (10:40)
[2017-12-09] MEDS: PANTOPRAZOLE SODIUM 40 MG VIAL IVPUSH SCH ×2 (10:41→21:18)
--- NOTE | 2017-12-09 10:51 | CON.CARD ---
Consult Consult Specialty:: cardiology Reason for Consultation:: SOB; hx CAD - History of Present Illness History of Present Illness: 57 yo black qqaQF with h/o HLD, HTN, IDDM, CAD stent placement x 3, who p/w SOB , and nausea. Patient reports acute onset of SOB at rest and beginning this AM. Also endorses Waters. 3 days of nausea with one episode of vomiting x 1 ( now resolved) 3 days ago.Reports sharp unremitting LLQ abdominal pain beginning today with absent BPR, postrpandial pain. No identifiable triggers or alleviators to symptoms. Also endorses 3 days of unremitting lightheadedness. Patient denies N/V, F,C, CP, wheezing, orthopnea, PND, palpitations, leg swelling/pain, hematemesis, urinary complaints, abdominal pain, BPR, diarrhea, constipation, sensory changes. PMHx: as noted above. H/o multiple stents. Recent stents reopened with balloon angioplasty 10-02-17. Patient potential candidate for CABG, but pt refused. Left main, LAD, and LCx were balloone angioplastied.. Seen by Dr. Loo today and referred to ED for admit. Denies h/o abdominal surgery. Patient scheduled for cardiac catherization this Friday (12-12-17) at [place] by Dr. Jose Albert. ROS: as noted SHx: tobacco use 1 ppd x 10 years. Denies Etoh, IVDA. - History Source History Provided By: Patient, Medical Record Limitations to Obtaining History: No Limitations - Past Medical History Cardio/Vascular: Yes: CAD, HTN, Hyperlipdemia, [place] ...: No Psych: Yes: Depression, Other (Multiple in-patient psychiatric hospitalizations for MDD; last 09/04- 24 at [facility] for suicidal ideation, no prior suicide attemps. 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 Home Medications - Allergies Allergies/Adverse Reactions: Allergies Allergy/AdvReac Type Severity Reaction Status Date / Time No Known Allergies Allergy Verified 12/08/17 21:51 - Home Medications Home Medications: Ambulatory Orders Aspirin 81 mg PO DAILY 09/29/17 Atenolol [Tenormin -] 25 mg PO DAILY 09/29/17 Desvenlafaxine [Desvenlafaxine ER] 100 mg PO DAILY 09/29/17 Lisinopril 10 mg PO DAILY 09/29/17 Olanzapine [Zyprexa -] 12.5 mg PO HS tablet 10/01/17 Insulin (Novolog) [Novolog] 0 units SQ BID 12/09/17 Insulin Degludec [Tresiba Flextouch U-100] 70 unit SQ HS 12/09/17 Family Disease History - Family Disease History Family Disease History: Diabetes: Father ([place]), Mother (CABG, at 73yo; Depression), Other: Mother, Brother (Depression; committed suicide) Vital Signs: Vital Signs Temperature 98 F 12/09/17 08:34 Pulse Rate 80 12/09/17 08:34 Respiratory Rate 20 12/09/17 08:34 Blood Pressure 109/53 12/09/17 08:34 O2 Sat by Pulse Oximetry (%) 97 12/09/17 06:00 - Other Data Labs, Other Data: CBC, BMP 12/09/17 07:30 12/09/17 07:30 INR, PTT INR 0.99 (0.82-1.09) 12/09/17 00:30 Troponin, BNP 12/09/17 12/09/17 00:30 07:30 Troponin I < 0.02 < 0.02 Troponin, BNP 12/09/17 12/09/17 00:30 07:30 Troponin I < 0.02 < 0.02 Problem List - Problems (1) Cigarette nicotine dependence Assessment/Plan: Pt quit very recently while using Chantix; she does not want Chantix restarted at the present time. Code(s): F17.210 - NICOTINE DEPENDENCE, CIGARETTES, UNCOMPLICATED (2) CAD (coronary artery disease) Assessment/Plan: Hx muLTIPLE CORONARY STENTS on , at [facility], pt refused CABG for triple-vessel disease. Angioplasty was performed on the Left Main, LAD, and Cx. TNI < 0.02 x 2 (several hours apart). Pt is sceduled for coronary angiogram with staged PCI of RCA this week. Code(s): I25.10 - ATHSCL HEART DISEASE OF [place] CORONARY ARTERY W/O ANG PCTRS (3) Diabetes Code(s): E11.9 - TYPE 2 DIABETES MELLITUS WITHOUT COMPLICATIONS (4) [place] cardiac risk >20% in next 10 years Code(s): Z91.89 - OTH PERSONAL RISK FACTORS, NOT ELSEWHERE CLASSIFIED (5) HTN (hypertension) Code(s): I10 - ESSENTIAL (PRIMARY) HYPERTENSION
[2017-12-09] MEDS: ALBUTEROL SO4 2.5/IPRATROPIUM 0.5 INH SOL 3 ML VIAL.NEB. NEB SCH ×3 (11:17→19:15)
--- NOTE | 2017-12-09 11:21 | EKG ---
Test Reason : Blood Pressure : / mmHG Vent. Rate : 091 BPM Atrial Rate : 091 BPM P-R Int : 142 ms QRS Dur : 086 ms QT Int : 376 ms P-R-T Axes : 076 -10 088 degrees QTc Int : 462 ms POOR DATA QUALITY, INTERPRETATION MAY BE ADVERSELY AFFECTED NORMAL SINUS RHYTHM POSSIBLE LEFT ATRIAL ENLARGEMENT ANTEROSEPTAL INFARCT (CITED ON OR BEFORE 29-SEP-2017) ABNORMAL ECG Confirmed by MD TAN, CJ ([id number]) on 12/09/2017 11:21:12 AM Referred By: Confirmed By:CJ MADDOX MD
--- NOTE | 2017-12-09 13:02 | CON.PULM ---
Consult Consult Specialty:: PULMONARY Referred by:: Dr. Singh Reason for Consultation:: shortness of breath - History of Present Illness Chief Complaint: shortness of breath History of Present Illness: 57yo female with h/o HTN, DM, hyperlipidemia, CAD s/p stents who presents with shortness of breath and chest pain. Chest pain described as "tingly" also with nausea. Shortness of breath mostly with exertion but also at rest. Recently had a stent placed in September,was told she may need a CABG. States her symptoms similar to when her stents were occluding. No fevers, chills or sweats. no cough or wheezing. Denies history of asthma or COPD but was a long time smoker, started at age 19, smoked on average 1/2 PPD, quit on 12/05. Was scheduled for an elective cardiac catheterization on 12/12. - History Source History Provided By: Patient, Medical Record Limitations to Obtaining History: No Limitations - Past Medical History Cardio/Vascular: Yes: CAD, HTN, Hyperlipdemia, [place] ...: No Psych: Yes: Depression, Other (Multiple in-patient psychiatric hospitalizations for MDD; last 09/04- 24 at [facility] for suicidal ideation, no prior suicide attemps. 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 Home Medications - Allergies Allergies/Adverse Reactions: Allergies Allergy/AdvReac Type Severity Reaction Status Date / Time No Known Allergies Allergy Verified 12/08/17 21:51 - Home Medications Home Medications: Ambulatory Orders Aspirin 81 mg PO DAILY 09/29/17 Atenolol [Tenormin -] 25 mg PO DAILY 09/29/17 Desvenlafaxine [Desvenlafaxine ER] 100 mg PO DAILY 09/29/17 Lisinopril 10 mg PO DAILY 09/29/17 Olanzapine [Zyprexa -] 12.5 mg PO HS tablet 10/01/17 Insulin (Novolog) [Novolog] 0 units SQ BID 12/09/17 Insulin Degludec [Tresiba Flextouch U-100] 70 unit SQ HS 12/09/17 Family Disease History - Family Disease History Family Disease History: Diabetes: Father ([place]), Mother (CABG, at 73yo; Depression), Other: Mother, Brother (Depression; committed suicide) Review of Systems - Review of Systems Constitutional: denies: Chills, Fever Eyes: denies: Recent Change in Vision HENT: denies: Nasal Congestion, Throat Pain Neck: denies: Stiffness, Tenderness Cardiovascular: reports: Chest Pain, Shortness of Breath. denies: Edema Respiratory: reports: SOB, SOB on Exertion. denies: Cough, Hemoptysis, Wheezing Gastrointestinal: reports: Nausea. denies: Abdominal Pain, Vomiting Genitourinary: denies: Dysuria, Hematuria Neurological: denies: Dizziness, Headache Endocrine: denies: Unexplained Weight Loss Physical Exam Vital Sings: Vital Signs Temperature 98 F 12/09/17 08:34 Pulse Rate 80 12/09/17 08:34 Respiratory Rate 20 12/09/17 12:34 Blood Pressure 109/53 12/09/17 08:34 O2 Sat by Pulse Oximetry (%) 97 12/09/17 12:34 Constitutional: Yes: No Distress, Calm Eyes: Yes: Conjunctiva Clear, EOM Intact HENT: Yes: Atraumatic, Normocephalic Neck: Yes: Supple, Trachea Midline Cardiovascular: Yes: Regular Rate and Rhythm Respiratory: Yes: Regular, CTA Bilaterally ...Clubbing: No Gastrointestinal: Yes: Normal Bowel Sounds, Soft. No: Tenderness Edema: No Neurological: Yes: Alert, Oriented Labs: CBC, BMP 12/09/17 07:30 12/09/17 07:30 Imaging - Results Chest X-ray: Report Reviewed, Image Reviewed (no infiltrates) Problem List - Problems (1) CAD (coronary artery disease) Code(s): I25.10 - ATHSCL HEART DISEASE OF [place] CORONARY ARTERY W/O ANG PCTRS (2) Shortness of breath Code(s): R06.02 - SHORTNESS OF BREATH (3) Chest pain Code(s): R07.9 - CHEST PAIN, UNSPECIFIED Qualifiers: Chest pain type: chest pain on breathing Qualified Code(s): R07.1 - Chest pain on breathing; R07.81 - Pleurodynia (4) Diabetes Code(s): E11.9 - TYPE 2 DIABETES MELLITUS WITHOUT COMPLICATIONS (5) HTN (hypertension) Code(s): I10 - ESSENTIAL (PRIMARY) HYPERTENSION (6) Hyperlipidemia Code(s): E78.5 - HYPERLIPIDEMIA, UNSPECIFIED Assessment/Plan Shortness of Breath/Chest Pain CAD r/o Angina HTN DM Hyperlipidemia - suspect shortness of breath from CAD/anginal equivalent - ASA, statin - beta [place] - inhaled bronchodilators as needed - O2 to keep Spo2 >90% - continued smoking cessation - outpt PFTs Thank you for this consult Nathan Malik MD
[2017-12-09] MEDS: OLANZapine 2.5 MG TABLET PO SCH (21:17)
[2017-12-10] MEDS: INSULIN (LEVEMIR) 100 UNITS/ML UNITS SQ SCH ×2 (06:17→17:23)
[2017-12-10] MEDS: INSULIN SLIDING SCALE (NOVOLOG) 1 VIAL SQ SCH ×4 (06:17→22:43)
[2017-12-10] MEDS ORDERED: INSULIN (NOVOLOG) ASPART 100 UNITS/ML 10ML VIAL ONE (06:19)
[2017-12-10] MEDS: ALBUTEROL SO4 2.5/IPRATROPIUM 0.5 INH SOL 3 ML VIAL.NEB. NEB SCH ×4 (08:55→19:25)
[2017-12-10] MEDS: ATENOLOL 25 MG TABLET (FP) PO SCH (09:55)
[2017-12-10] MEDS: ASPIRIN 81 MG CHEWABLE TABLETS PO SCH (09:55)
[2017-12-10] MEDS: PANTOPRAZOLE SODIUM 40 MG VIAL IVPUSH SCH (09:55)
[2017-12-10] MEDS: LISINOPRIL 10 MG TABLET (FP) PO SCH (09:55)
--- NOTE | 2017-12-10 10:47 | PN ---
Progress Note, Physician History of Present Illness: PULMONARY AWAKE,FEELING BETTER,-RESP DISTRESS - Current Medication List Current Medications: Active Medications Albuterol/Ipratropium (Duoneb -) 1 amp NEB RQID [facility] Last Admin: 12/10/17 08:55 Dose: 1 amp Aspirin (Asa -) 81 mg PO DAILY [facility] Last Admin: 12/10/17 09:55 Dose: 81 mg Atenolol (Tenormin -) 25 mg PO DAILY [facility] Last Admin: 12/10/17 09:55 Dose: 25 mg Insulin Aspart (Novolog Vial Sliding Scale -) 1 vial SQ ACHS [facility]; Protocol Last Admin: 12/10/17 06:17 Dose: 2 units Insulin Detemir (Levemir Vial) 35 units SQ BIDI [facility] Last Admin: 12/10/17 06:17 Dose: 35 units Lisinopril (Prinivil) 10 mg PO DAILY [facility] Last Admin: 12/10/17 09:55 Dose: 10 mg Non-Formulary Medication (Desvenlafaxine [Desvenlafaxine Er]) 100 mg PO DAILY [facility] Olanzapine (Zyprexa -) 12.5 mg PO HS [facility] Last Admin: 12/09/17 21:17 Dose: 12.5 mg Pantoprazole Sodium (Protonix Iv) 40 mg IVPUSH BID [facility] Last Admin: 12/10/17 09:55 Dose: 40 mg - Objective Vital Signs: Vital Signs Temperature 98.4 F 12/10/17 09:52 Pulse Rate 97 H 12/10/17 09:53 Respiratory Rate 20 12/10/17 09:53 Blood Pressure 119/74 12/10/17 09:53 O2 Sat by Pulse Oximetry (%) 97 12/10/17 04:00 Constitutional: Yes: Well Nourished, Calm Eyes: Yes: WNL HENT: Yes: WNL Neck: Yes: WNL Cardiovascular: Yes: Regular Rate and Rhythm, S1, S2 Respiratory: Yes: Diminished Gastrointestinal: Yes: Normal Bowel Sounds, Soft Extremities: Yes: WNL Edema: No Labs: CBC, BMP Assessment/Plan Problem List - Problems (1) CAD (coronary artery disease) Code(s): I25.10 - ATHSCL HEART DISEASE OF [place] CORONARY ARTERY W/O ANG PCTRS (2) Shortness of breath Code(s): R06.02 - SHORTNESS OF BREATH (3) Chest pain Code(s): R07.9 - CHEST PAIN, UNSPECIFIED Qualifiers: Chest pain type: chest pain on breathing Qualified Code(s): R07.1 - Chest pain on breathing; R07.81 - Pleurodynia (4) Diabetes Code(s): E11.9 - TYPE 2 DIABETES MELLITUS WITHOUT COMPLICATIONS (5) HTN (hypertension) Code(s): I10 - ESSENTIAL (PRIMARY) HYPERTENSION (6) Hyperlipidemia Code(s): E78.5 - HYPERLIPIDEMIA, UNSPECIFIED Assessment/Plan Shortness of Breath/Chest Pain improving CAD r/o Angina HTN DM Hyperlipidemia - suspect shortness of breath from CAD/anginal equivalent - ASA, statin - beta [place] - inhaled bronchodilators - O2 to keep Spo2 >90% - smoking cessation - outpt PFTs - cardiac cath as per cardiology DR TELLO
--- NOTE | 2017-12-10 10:53 | PN ---
Progress Note, Physician History of Present Illness: 57 yo black qqaQF with h/o HLD, HTN, IDDM, CAD stent placement x 3, who p/w SOB , and nausea. Patient reports acute onset of SOB at rest and beginning this AM. Also endorses Waters. 3 days of nausea with one episode of vomiting x 1 ( now resolved) 3 days ago.Reports sharp unremitting LLQ abdominal pain beginning today with absent BPR, postrpandial pain. No identifiable triggers or alleviators to symptoms. Also endorses 3 days of unremitting lightheadedness. Patient denies N/V, F,C, CP, wheezing, orthopnea, PND, palpitations, leg swelling/pain, hematemesis, urinary complaints, abdominal pain, BPR, diarrhea, constipation, sensory changes. PMHx: as noted above. H/o multiple stents. Recent stents reopened with balloon angioplasty 10-02-17. Patient potential candidate for CABG, but pt refused. Left main, LAD, and LCx were balloone angioplastied.. Seen by Dr. Loo today and referred to ED for admit. Denies h/o abdominal surgery. Patient scheduled for cardiac catherization this Friday (12-12-17) at [place] by Dr. Jose Albert. ROS: as noted SHx: tobacco use 1 ppd x 10 years. Denies Etoh, IVDA. - History Source History Provided By: Patient, Medical Record Limitations to Obtaining History: No Limitations - Past Medical History Cardio/Vascular: Yes: CAD, HTN, Hyperlipdemia, [place] ...: No Psych: Yes: Depression, Other (Multiple in-patient psychiatric hospitalizations for MDD; last 09/04- 24 at [facility] for suicidal ideation, no prior suicide attemps. 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 - Current Medication List Current Medications: Active Medications Albuterol/Ipratropium (Duoneb -) 1 amp NEB RQID [facility] Last Admin: 12/10/17 08:55 Dose: 1 amp Aspirin (Asa -) 81 mg PO DAILY [facility] Last Admin: 12/10/17 09:55 Dose: 81 mg Atenolol (Tenormin -) 25 mg PO DAILY [facility] Last Admin: 12/10/17 09:55 Dose: 25 mg Insulin Aspart (Novolog Vial Sliding Scale -) 1 vial SQ ACHS [facility]; Protocol Last Admin: 12/10/17 06:17 Dose: 2 units Insulin Detemir (Levemir Vial) 35 units SQ BIDI [facility] Last Admin: 12/10/17 06:17 Dose: 35 units Lisinopril (Prinivil) 10 mg PO DAILY [facility] Last Admin: 12/10/17 09:55 Dose: 10 mg Non-Formulary Medication (Desvenlafaxine [Desvenlafaxine Er]) 100 mg PO DAILY [facility] Olanzapine (Zyprexa -) 12.5 mg PO HS [facility] Last Admin: 12/09/17 21:17 Dose: 12.5 mg Pantoprazole Sodium (Protonix Iv) 40 mg IVPUSH BID [facility] Last Admin: 12/10/17 09:55 Dose: 40 mg - Objective Vital Signs: Vital Signs Temperature 98.4 F 12/10/17 09:52 Pulse Rate 97 H 12/10/17 09:53 Respiratory Rate 20 12/10/17 09:53 Blood Pressure 119/74 12/10/17 09:53 O2 Sat by Pulse Oximetry (%) 97 12/10/17 04:00 Eyes: Yes: WNL, Conjunctiva Clear, EOM Intact HENT: Yes: WNL, Atraumatic, Normocephalic Neck: Yes: WNL, Supple, Trachea Midline Cardiovascular: Yes: WNL, Regular Rate and Rhythm Respiratory: Yes: WNL, Regular, CTA Bilaterally Gastrointestinal: Yes: WNL, Normal Bowel Sounds Genitourinary: Yes: WNL Musculoskeletal: Yes: WNL Extremities: Yes: WNL Edema: No Integumentary: Yes: WNL Neurological: Yes: WNL, Alert, Oriented ...Motor Strength: WNL Psychiatric: Yes: WNL Labs: CBC, BMP 12/09/17 07:30 12/09/17 07:30 INR, PTT INR 0.99 (0.82-1.09) 12/09/17 00:30 Assessment/Plan - Problems (1) Cigarette nicotine dependence Assessment/Plan: Pt quit very recently while using Chantix; she does not want Chantix restarted at the present time. Code(s): F17.210 - NICOTINE DEPENDENCE, CIGARETTES, UNCOMPLICATED (2) CAD (coronary artery disease) Assessment/Plan: Hx muLTIPLE CORONARY STENTS on , at [facility], pt refused CABG for triple-vessel disease. Angioplasty was performed on the Left Main, LAD, and Cx. TNI < 0.02 x 2 (several hours apart). Pt is sceduled for coronary angiogram with staged PCI of RCA this week. Code(s): I25.10 - ATHSCL HEART DISEASE OF [place] CORONARY ARTERY W/O ANG PCTRS (3) Diabetes Code(s): E11.9 - TYPE 2 DIABETES MELLITUS WITHOUT COMPLICATIONS (4) [place] cardiac risk >20% in next 10 years Code(s): Z91.89 - OTH PERSONAL RISK FACTORS, NOT ELSEWHERE CLASSIFIED (5) HTN (hypertension) Code(s): I10 - ESSENTIAL (PRIMARY) HYPERTENSION
[2017-12-10] MEDS ORDERED: ONDANSETRON *ODT* 4 MG TABLET SL PRN (11:34)
[2017-12-10] MEDS: PANTOPRAZOLE 40 MG TABLET (FP) PO SCH ×2 (12:16→22:44)
[2017-12-10 13:34] VITALS: BMI 25.6
--- NOTE | 2017-12-10 14:12 | ECHO ---
Name: BAILEY, MARIA DE JSEUS Exam:Adult Echocardiogram Study Date: 12/10/2017 10:24 AM Reason For Study: EF Height: 62 in Weight: 140 lb BSA: 1.6 m2 MMode/2D Measurements & Calculations IVSd: 1.6 cm Ao root diam: 3.0 cm LVIDd: 4.1 cm LA dimension: 3.3 cm LVIDs: 3.1 cm LVPWd: 1.5 cm EDV(Teich): 72.9 ml TAPSE: 1.5 cm ESV(Teich): 37.6 ml RV S [place]: 12.0 cm/sec Doppler Measurements & Calculations MV E max [place]: 73.1 cm/sec TR max [place]: 173.3 cm/sec MV A max [place]: 110.6 cm/sec TR max P.1 mmHg MV E/A: 0.66 MV dec time: 0.26 sec Med Peak E' [place]: 3.3 cm/sec Med E/e': 21.9 Lat Peak E' [place]: 4.1 cm/sec Lat E/e': 17.8 Procedure A two-dimensional transthoracic echocardiogram with color flow and Doppler was performed. Left Ventricle There is moderate concentric left ventricular hypertrophy. The left ventricular ejection fraction is normal. E/A reversal consistent with but not diagnostic of poor LV compliance. The left ventricular wall enio on is normal. Right Ventricle The right ventricle is normal in size and function. Atria Normal left and right atrial size and function. Mitral Valve There is mild mitral valve thickening. There is no mitral valve stenosis. There is trace mitral regur gitation. Tricuspid Valve There is mild tricuspid valve thickening. There is no tricuspid stenosis. There is mild tricuspid regurgitation. Right ventricular systolic pressure is normal. Aortic Valve The aortic valve is normal in structure and function. No hemodynamically significant valvular aortic stenosis. No aortic regurgitation is present. Pulmonic Valve The pulmonic valve is not well visualized. There is no pulmonic valvular stenosis. There is no pulmon ic valvular regurgitation. Great Vessels The aortic root is normal size. Pericardium/Pleura There is no pericardial effusion. Interpretation Summary There is moderate concentric left ventricular hypertrophy. The left ventricular ejection fraction is normal. The left ventricular wall motion is normal. There is mild tricuspid regurgitation. Right ventricular systolic pressure is normal. E/A reversal consistent with but not diagnostic of poor LV compliance There is trace mitral regurgitation. MD Gerry Kelley 12/10/2017 02:11 PM
--- NOTE | 2017-12-10 15:31 | CON.GI ---
Consult Consult Specialty:: GI Reason for Consultation:: nausea - History of Present Illness History of Present Illness: chart reviewed events noted. per initial intake: This is a 57 year old female with a past medical history of HTN, HLD, CAD, IDDM who presented to the ED with SOB/STEVENSON since yesterday (12/08) . She also reports nausea and LLQ pain x 3 days which is no longer present at time of exam. Recent cardiac cath on 10/02/17, potential candidate for CABG as per ED resident note. Scheduled for cardiac cath on 12/12/17. The patient was c/o nausea while tolerating regular diet. No dysphagia, odynophagia, diarrhea, or vomiting reported. No fever, jaundice, melena, hematochezia, hematemesis. No history of chronic GI issues. At the time of this evaluation the pt reports complete resolution of the nausea. Tolerating regular diet. Never had EGD, or colonoscopy. Takes small dose ASA at home. CT A/ P w/o negative for acute GI pathology - History Source History Provided By: Patient, Medical Record - Past Medical History Cardio/Vascular: Yes: CAD, HTN, Hyperlipdemia, CT ...: No Psych: Yes: Depression, Other (Multiple in-patient psychiatric hospitalizations for MDD; last 09/04- 24 at [facility] for suicidal ideation, no prior suicide attemps. 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 Home Medications - Allergies Allergies/Adverse Reactions: Allergies Allergy/AdvReac Type Severity Reaction Status Date / Time No Known Allergies Allergy Verified 12/08/17 21:51 - Home Medications Home Medications: Ambulatory Orders Aspirin 81 mg PO DAILY 09/29/17 Atenolol [Tenormin -] 25 mg PO DAILY 09/29/17 Desvenlafaxine [Desvenlafaxine ER] 100 mg PO DAILY 09/29/17 Lisinopril 10 mg PO DAILY 09/29/17 Olanzapine [Zyprexa -] 12.5 mg PO HS tablet 10/01/17 Insulin (Novolog) [Novolog] 0 units SQ BID 12/09/17 Insulin Degludec [Tresiba Flextouch U-100] 70 unit SQ HS 12/09/17 Family Disease History - Family Disease History Family Disease History: Diabetes: Father ([place]), Mother (CABG, at 73yo; Depression), Other: Mother, Brother (Depression; committed suicide) Review of Systems Findings/Remarks: as per HPI, H&P, ED Physical Exam-GI Vital Signs: Vital Signs Temperature 98.4 F 12/10/17 13:29 Pulse Rate 100 H 12/10/17 13:30 Respiratory Rate 16 12/10/17 13:30 Blood Pressure 106/66 12/10/17 13:30 O2 Sat by Pulse Oximetry (%) 97 12/10/17 04:00 Constitutional: Yes: Well Nourished, No Distress, Calm Eyes: Yes: Conjunctiva Clear HENT: Yes: Atraumatic Neck: Yes: Supple Cardiovascular: Yes: Regular Rate and Rhythm. No: Bradycardia, Tachycardia Respiratory: Yes: Regular Gastrointestinal Inspection: No: Ascites, Distention ...Auscultate: Yes: Normoactive Bowel Sounds ...Palpate: Yes: Soft. No: Firm/Rigid, Guarding, Mass, Tenderness, Tenderness, Epigastium, Tenderness, Rebound Neurological: Yes: Alert, Oriented Labs: CBC, BMP 12/09/17 07:30 12/09/17 07:30 INR, PTT INR 0.99 (0.82-1.09) 12/09/17 00:30 Laboratory Last Values WBC 5.1 K/mm3 (4.0-10.0) 12/09/17 07:30 RBC 4.68 M/mm3 (3.60-5.2) 12/09/17 07:30 Hgb 12.3 GM/dL (10.7-15.3) 12/09/17 07:30 Hct 38.1 % (32.4-45.2) 12/09/17 07:30 MCV 81.5 fl (80-96) 12/09/17 07:30 MCH 26.4 pg (25.7-33.7) 12/09/17 07:30 MCHC 32.3 g/dl (32.0-36.0) 12/09/17 07:30 RDW 13.6 % (11.6-15.6) 12/09/17 07:30 Plt Count 153 K/MM3 (134-434) 12/09/17 07:30 MPV 9.2 fl (7.5-11.1) 12/09/17 07:30 Absolute Neuts (auto) 2.5 # 12/09/17 07:30 Neutrophils % 49.7 % (42.8-82.8) 12/09/17 07:30 Lymphocytes % 42.8 % (8-40) H 12/09/17 07:30 Monocytes % 6.7 % (3.8-10.2) 12/09/17 07:30 Eosinophils % 0.0 % (0-4.5) 12/09/17 07:30 Basophils % 0.8 % (0-2.0) 12/09/17 07:30 Nucleated RBC % 0 % (0-0) 12/09/17 07:30 PT with INR 11.20 SEC (9.7-13.0) 12/09/17 00:30 INR 0.99 (0.82-1.09) 12/09/17 00:30 Sodium 136 mmol/L (136-145) 12/09/17 07:30 Potassium 3.8 mmol/L (3.5-5.1) 12/09/17 07:30 Chloride 100 mmol/L (98-107) 12/09/17 07:30 Carbon Dioxide 30 mmol/L (21-32) 12/09/17 07:30 Anion Gap 6 (8-16) L 12/09/17 07:30 BUN 20 mg/dL (7-18) H 12/09/17 07:30 Creatinine 0.8 mg/dL (0.55-1.02) 12/09/17 07:30 Creat Clearance w eGFR > 60 (>60) 12/09/17 07:30 POC Glucometer 273 UNITS (80-120) 12/10/17 11:47 Random Glucose 255 mg/dL (74-106) H 12/09/17 07:30 Hemoglobin A1c % 8.9 % (4.8-6.0) H 12/10/17 12:00 Calcium 9.3 mg/dL (8.5-10.1) 12/09/17 07:30 Phosphorus 3.1 mg/dL (2.5-4.9) 12/09/17 07:30 Magnesium 1.6 mg/dL (1.8-2.4) L 12/10/17 12:00 Total Bilirubin 0.2 mg/dL (0.2-1.0) 12/09/17 04:36 AST 16 U/L (15-37) 12/09/17 04:36 ALT 35 U/L (12-78) 12/09/17 04:36 Alkaline Phosphatase 66 U/L (45-117) 12/09/17 04:36 Creatine Kinase 87 IU/L (26-192) 12/09/17 12:25 Creatine Kinase Index 0.7 % (0.0-5.0) 12/09/17 00:30 CK-MB (CK-2) 1.27 ng/mL (0.5-3.6) 12/09/17 00:30 Troponin I < 0.02 ng/ml (0.00-0.05) 12/09/17 12:25 Total Protein 6.2 g/dl (6.4-8.2) L 12/09/17 04:36 Albumin 3.4 g/dl (3.4-5.0) 12/09/17 04:36 Urine Color Ltyellow 12/09/17 01:00 Urine Appearance Clear 12/09/17 01:00 Urine pH 5.0 (5.0-8.0) 12/09/17 01:00 Ur Specific [place] 1.030 (1.001-1.035) 12/09/17 01:00 Urine Protein Negative (NEGATIVE) 12/09/17 01:00 Urine Glucose (UA) 3+ (NEGATIVE) H 12/09/17 01:00 Urine Ketones Negative (NEGATIVE) 12/09/17 01:00 Urine Blood Negative (NEGATIVE) 12/09/17 01:00 Urine Nitrite Negative (NEGATIVE) 12/09/17 01:00 Urine Bilirubin Negative (<2.0 mg/dL) 12/09/17 01:00 Urine Urobilinogen Negative mg/dL (0.2-1.0) 12/09/17 01:00 Ur Leukocyte Esterase Negative (NEGATIVE) 12/09/17 01:00 Imaging - Results Cat Scan: Report Reviewed Problem List - Problems (1) Nausea Code(s): R11.0 - NAUSEA Assessment/Plan A 57F with the above chronic medical issues presented with SOB and nausea. No history of chronic, or recurrent GI-related issues. The nausea has resolved and the pt reports no GI-related symptoms at this time. Tolerating regular diet. Continue current care as per cardiology and primary care. The pt should have a screening colonoscopy as OP when medically cleared. Discussed with the patient.
[2017-12-10] MEDS ORDERED: MAGNESIUM SULF 50% (8.12 MEQ/2 ML-1 GM VIAL) IVPB ONE (15:35)
[2017-12-10] MEDS ORDERED: MAGNESIUM SULFATE IN WATER 2 GM/50 ML IVPB IVPB ONE (16:00)
--- NOTE | 2017-12-10 20:49 | PN ---
Progress Note, Physician Chief Complaint: AWAKE TIRED THIS IS MY FIRST ENCOUNTER WITH THIS PATIENT DENIES CHEST PAIN +SOB C/O FATIGUE - Current Medication List Current Medications: Active Medications Albuterol/Ipratropium (Duoneb -) 1 amp NEB RQID [facility] Last Admin: 12/10/17 19:25 Dose: Not Given Aspirin (Asa -) 81 mg PO DAILY [facility] Last Admin: 12/10/17 09:55 Dose: 81 mg Atenolol (Tenormin -) 25 mg PO DAILY [facility] Last Admin: 12/10/17 09:55 Dose: 25 mg Insulin Aspart (Novolog Vial Sliding Scale -) 1 vial SQ ACHS [facility]; Protocol Last Admin: 12/10/17 17:22 Dose: 3 units Insulin Detemir (Levemir Vial) 35 units SQ BIDI [facility] Last Admin: 12/10/17 17:23 Dose: 35 units Lisinopril (Prinivil) 10 mg PO DAILY [facility] Last Admin: 12/10/17 09:55 Dose: 10 mg Non-Formulary Medication (Desvenlafaxine [Desvenlafaxine Er]) 100 mg PO DAILY [facility] Olanzapine (Zyprexa -) 12.5 mg PO HS [facility] Last Admin: 12/09/17 21:17 Dose: 12.5 mg Ondansetron HCl (Zofran Odt -) 4 mg SL Q6H PRN PRN Reason: NAUSEA AND/OR VOMITING Pantoprazole Sodium (Protonix -) 40 mg PO BID [facility] Last Admin: 12/10/17 12:16 Dose: Not Given - Objective Vital Signs: Vital Signs Temperature 98.2 F 12/10/17 18:00 Pulse Rate 90 12/10/17 18:00 Respiratory Rate 19 12/10/17 18:00 Blood Pressure 152/72 12/10/17 18:00 O2 Sat by Pulse Oximetry (%) 97 12/10/17 12:00 Constitutional: Yes: Mild Distress Eyes: Yes: WNL HENT: Yes: WNL Neck: Yes: WNL Cardiovascular: Yes: WNL Respiratory: Yes: Diminished, On Nasal O2, SOB Gastrointestinal: Yes: WNL Genitourinary: Yes: WNL Musculoskeletal: Yes: Muscle Weakness Extremities: Yes: WNL Edema: No Peripheral Pulses WNL: Yes Integumentary: Yes: WNL Wound/Incision: Yes: Clean/Dry Neurological: Yes: Pre-Existing Deficit ...Motor Strength: WNL Psychiatric: Yes: Other Labs: CBC, BMP 12/09/17 07:30 12/09/17 07:30 INR, PTT INR 0.99 (0.82-1.09) 12/09/17 00:30 Problem List - Problems (1) Abdominal pain Code(s): R10.9 - UNSPECIFIED ABDOMINAL PAIN (2) CAD (coronary artery disease) Code(s): I25.10 - ATHSCL HEART DISEASE OF [place] CORONARY ARTERY W/O ANG PCTRS (3) Cigarette nicotine dependence Code(s): F17.210 - NICOTINE DEPENDENCE, CIGARETTES, UNCOMPLICATED (4) Shortness of breath Code(s): R06.02 - SHORTNESS OF BREATH (5) Chest pain Code(s): R07.9 - CHEST PAIN, UNSPECIFIED Qualifiers: Chest pain type: chest pain on breathing Qualified Code(s): R07.1 - Chest pain on breathing; R07.81 - Pleurodynia (6) Controlled diabetes mellitus type 2 with complications Code(s): E11.8 - TYPE 2 DIABETES MELLITUS WITH UNSPECIFIED COMPLICATIONS (7) Diabetes Code(s): E11.9 - TYPE 2 DIABETES MELLITUS WITHOUT COMPLICATIONS (8) [place] cardiac risk >20% in next 10 years Code(s): Z91.89 - OTH PERSONAL RISK FACTORS, NOT ELSEWHERE CLASSIFIED (9) HTN (hypertension) Code(s): I10 - ESSENTIAL (PRIMARY) HYPERTENSION (10) Heart palpitations Code(s): R00.2 - PALPITATIONS (11) Hyperlipidemia Code(s): E78.5 - HYPERLIPIDEMIA, UNSPECIFIED Assessment/Plan CARDIAC WORKUP IN PROGRESS 02 SUPPORT PULM F/U NICOTINE DEPEND. SMOKING CESSATION D/W PATIENT OOB TO CHAIR PT EVAL CHECK 1C
[2017-12-10] MEDS: OLANZapine 2.5 MG TABLET PO SCH (22:43)
--- NOTE | 2017-12-11 00:02 | CONSULT ---
Consult Consult Specialty:: endocrine Reason for Consultation:: diabetes mellitus - History of Present Illness Chief Complaint: chest pain History of Present Illness: 57 year old female with a past medical history of HTN, HLD, CAD, IDDM who presented to the ED with SOB/STEVENSON since yesterday (12/08). She also reports nausea and LLQ pain which is no longer present at time of exam. Recent cardiac cath on 10/02/17, potential candidate for CABG as per ED resident note. Scheduled for cardiac cath on 12/12/17.she has elevated blood sugars,despite eating less.she has shortness of breath on exertion,no fever nausea or vomiting - History Source History Provided By: Patient - Past Medical History Cardio/Vascular: Yes: CAD, HTN, Hyperlipdemia, [place] ...: No Psych: Yes: Depression, Other (Multiple in-patient psychiatric hospitalizations for MDD; last 09/04- at [facility] for suicidal ideation, no prior suicide attemps. 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 Home Medications - Allergies Allergies/Adverse Reactions: Allergies Allergy/AdvReac Type Severity Reaction Status Date / Time No Known Allergies Allergy Verified 12/08/17 21:51 - Home Medications Home Medications: Ambulatory Orders Aspirin 81 mg PO DAILY 09/29/17 Atenolol [Tenormin -] 25 mg PO DAILY 09/29/17 Desvenlafaxine [Desvenlafaxine ER] 100 mg PO DAILY 09/29/17 Lisinopril 10 mg PO DAILY 09/29/17 Olanzapine [Zyprexa -] 12.5 mg PO HS tablet 10/01/17 Insulin (Novolog) [Novolog] 0 units SQ BID 12/09/17 Insulin Degludec [Tresiba Flextouch U-100] 70 unit SQ HS 12/09/17 Family Disease History - Family Disease History Family Disease History: Diabetes: Father ([place]), Mother (CABG, at 73yo; Depression), Other: Mother, Brother (Depression; committed suicide) Review of Systems - Review of Systems Constitutional: reports: Lethargy, Weakness Eyes: reports: Blurred Vision HENT: reports: No Symptoms Neck: reports: No Symptoms Cardiovascular: reports: Shortness of Breath Respiratory: reports: Exercise Intolerance, Orthopnea, SOB on Exertion, Wheezing Gastrointestinal: reports: Bloating Breasts: reports: No Symptoms Reported Neurological: reports: Unsteady Gait, Weakness Endocrine: reports: Unexplained Weight Loss Hematology/Lymphatic: reports: No Symptoms Physical Exam Vital Signs: Vital Signs Temperature 98.2 F 12/10/17 18:00 Pulse Rate 90 12/10/17 18:00 Respiratory Rate 19 12/10/17 18:00 Blood Pressure 152/72 12/10/17 18:00 O2 Sat by Pulse Oximetry (%) 97 12/10/17 12:00 Constitutional: Yes: Anxious Eyes: Yes: EOM Intact HENT: Yes: Normocephalic Neck: Yes: Trachea Midline Cardiovascular: Yes: Tachycardia, Murmur Respiratory: Yes: CTA Bilaterally Gastrointestinal: Yes: Normal Bowel Sounds ...Rectal Exam: Yes: Deferred Renal/: Yes: WNL Musculoskeletal: Yes: WNL Extremities: Yes: WNL Neurological: Yes: Alert, Oriented Labs: CBC, BMP 12/09/17 07:30 12/09/17 07:30 Problem List - Problems (1) Abdominal pain Code(s): R10.9 - UNSPECIFIED ABDOMINAL PAIN (2) CAD (coronary artery disease) Code(s): I25.10 - ATHSCL HEART DISEASE OF [place] CORONARY ARTERY W/O ANG PCTRS Qualifiers: Associated angina: with stable angina (3) Cigarette nicotine dependence Code(s): F17.210 - NICOTINE DEPENDENCE, CIGARETTES, UNCOMPLICATED (4) Nausea Code(s): R11.0 - NAUSEA (5) Shortness of breath Code(s): R06.02 - SHORTNESS OF BREATH (6) Chest pain Code(s): R07.9 - CHEST PAIN, UNSPECIFIED Qualifiers: Chest pain type: chest pain on breathing Qualified Code(s): R07.1 - Chest pain on breathing; R07.81 - Pleurodynia (7) Controlled diabetes mellitus type 2 with complications Code(s): E11.8 - TYPE 2 DIABETES MELLITUS WITH UNSPECIFIED COMPLICATIONS (8) Diabetes Code(s): E11.9 - TYPE 2 DIABETES MELLITUS WITHOUT COMPLICATIONS Assessment/Plan Current Active Problems Abdominal pain (Acute) CAD (coronary artery disease) (Acute) Cigarette nicotine dependence (Acute) Nausea (Acute) Shortness of breath (Acute) diabetes mellitus hyperglycemia hyperlipidemia Abnormal Lab Results 12/10/17 12/10/17 12:00 12:00 Hemoglobin A1c % 8.9 H Magnesium 1.6 L Laboratory Results - last 24 hr 12/10/17 12/10/17 12/10/17 05:28 11:47 12:00 POC Glucometer 181 273 Hemoglobin A1c % Magnesium 1.6 L Laboratory Tests 12/09/17 12/09/17 12/09/17 07:30 11:55 16:57 Sodium 136 Potassium 3.8 Chloride 100 Carbon Dioxide 30 Anion Gap 6 L BUN 20 H Creatinine 0.8 Creat Clearance w eGFR > 60 POC Glucometer 208 273 Random Glucose 255 H 12/09/17 12/10/17 21:01 05:28 Sodium Potassium Chloride Carbon Dioxide Anion Gap BUN Creatinine Creat Clearance w eGFR POC Glucometer 297 181 Random Glucose plan: bgm qid novolog insulin doses levemir 35 units sqbid continue asa statin cardiac intervention as advised
[2017-12-11] MEDS: INSULIN (LEVEMIR) 100 UNITS/ML UNITS SQ SCH ×2 (05:59→17:13)
[2017-12-11] MEDS: INSULIN SLIDING SCALE (NOVOLOG) 1 VIAL SQ SCH ×3 (05:59→17:13)
[2017-12-11] MEDS: ALBUTEROL SO4 2.5/IPRATROPIUM 0.5 INH SOL 3 ML VIAL.NEB. NEB SCH ×4 (07:33→20:20)
--- NOTE | 2017-12-11 09:18 | CONSULT ---
Consult - text type - Consultation Consultation Note: Neurology HISTORY OF PRESENT ILLNESS: This is a 57 year old female with a past medical history of HTN, HLD, CAD, IDDM who presented to the ED with SOB/STEVENSON. She also had nausea and LLQ pain x 3 days which is no longer present. CT abd/pelvis without acute findings. consulted for dizzyness which she reports resolved. Denies room spinning sensation. Denies lightheadedness. Disucssed hydration and avoid sudden head movements. Recent Travel: pt denies PAST MEDICAL HISTORY: HTN, HLD, CAD, IDDM, Depression (multiple psychiatric hospitalizations, most recent 08/2017) PAST SURGICAL HISTORY: stent x3 left ankle surgery L rotator cuff surgery hernia repair Social History: Smoking: pt denies Alcohol: pt denies Drugs: pt denies Family History: mother, father and siblings alive and well Allergies No Known Allergies Allergy (Verified 12/08/17 21:51) HOME MEDICATIONS: 3 Medication Instructions Recorded Aspirin 81 mg PO DAILY 09/29/17 Atenolol [Tenormin -] 25 mg PO DAILY 09/29/17 Desvenlafaxine [Desvenlafaxine ER] 100 mg PO DAILY 09/29/17 Lisinopril 10 mg PO DAILY 09/29/17 Olanzapine [Zyprexa -] 12.5 mg PO HS tablet 10/01/17 REVIEW OF SYSTEMS CONSTITUTIONAL: Absent: fever, chills, diaphoresis, generalized weakness, malaise, loss of appetite, weight change HEENT: Absent: rhinorrhea, nasal congestion, throat pain, throat swelling, difficulty swallowing, mouth swelling, ear pain, eye pain, visual changes CARDIOVASCULAR: Absent: chest pain, syncope, palpitations, irregular heart rate, lightheadedness , peripheral edema RESPIRATORY: Present: shortness of breath, dyspnea with exertion Absent: cough, orthopnea, wheezing, stridor, hemoptysis GASTROINTESTINAL: Present: abdominal pain, nausea, vomiting Absent: abdominal distension, diarrhea, constipation, melena, hematochezia GENITOURINARY: Absent: dysuria, frequency, urgency, hesitancy, hematuria, flank pain, genital pain MUSCULOSKELETAL: Absent: myalgia, arthralgia, joint swelling, back pain, neck pain SKIN: Absent: rash, itching, pallor HEMATOLOGIC/IMMUNOLOGIC: Absent: easy bleeding, easy bruising, lymphadenopathy, frequent infections ENDOCRINE: Absent: unexplained weight gain, unexplained weight loss, heat intolerance, cold intolerance NEUROLOGIC: Absent: headache, focal weakness or paresthesias, dizziness, unsteady gait, seizure, mental status changes, bladder or bowel incontinence PSYCHIATRIC: Absent: anxiety, depression, suicidal or homicidal ideation, hallucinations. PHYSICAL EXAMINATION Vital Signs Period Temp Pulse Resp BP Sys/[place] Pulse Ox Last 24 Hr 98.2 F-98.4 F 81-103 16-20 88-152/59-76 96-97 GENERAL: Awake, alert, and fully oriented, in no acute distress. HEAD: Normal with no signs of trauma. EYES: Pupils equal, round and reactive to light, extraocular movements intact, sclera anicteric, conjunctiva clear. No lid lag. EARS, NOSE, THROAT: Ears normal, nares patent, oropharynx clear without exudates. Moist mucous membranes. NECK: Normal range of motion, supple without lymphadenopathy, JVD, or masses. LUNGS: Breath sounds equal, clear to auscultation bilaterally. No wheezes, and no crackles. No accessory muscle use. HEART: Regular rate and rhythm, normal S1 and S2 without murmur, rub or gallop. ABDOMEN: Soft, nontender, not distended, normoactive bowel sounds, no guarding, no rebound, no masses. No hepatomegaly or splenomegaly. MUSCULOSKELETAL: Normal range of motion at all joints. No bony deformities or tenderness. No CVA tenderness. UPPER EXTREMITIES: 2+ pulses, warm, well-perfused. No cyanosis. No clubbing. No peripheral edema. LOWER EXTREMITIES: 2+ pulses, warm, well-perfused. No calf tenderness. No peripheral edema. NEUROLOGICAL: Cranial nerves II-XII intact. Normal speech. Moving all extremities equally, finger to nose intact, gait deferred PSYCHIATRIC: Cooperative. Good eye contact. Appropriate mood and affect. SKIN: Warm, dry, normal turgor, no rashes or lesions noted, normal capillary refill. CBCD WBC 5.1 K/mm3 (4.0-10.0) 12/09/17 07:30 RBC 4.68 M/mm3 (3.60-5.2) 12/09/17 07:30 Hgb 12.3 GM/dL (10.7-15.3) 12/09/17 07:30 Hct 38.1 % (32.4-45.2) 12/09/17 07:30 MCV 81.5 fl (80-96) 12/09/17 07:30 MCHC 32.3 g/dl (32.0-36.0) 12/09/17 07:30 RDW 13.6 % (11.6-15.6) 12/09/17 07:30 Plt Count 153 K/MM3 (134-434) 12/09/17 07:30 MPV 9.2 fl (7.5-11.1) 12/09/17 07:30 CMP Sodium 136 mmol/L (136-145) 12/09/17 07:30 Potassium 3.8 mmol/L (3.5-5.1) 12/09/17 07:30 Chloride 100 mmol/L (98-107) 12/09/17 07:30 Carbon Dioxide 30 mmol/L (21-32) 12/09/17 07:30 Anion Gap 6 (8-16) L 12/09/17 07:30 BUN 20 mg/dL (7-18) H 12/09/17 07:30 Creatinine 0.8 mg/dL (0.55-1.02) 12/09/17 07:30 Creat Clearance w eGFR > 60 (>60) 12/09/17 07:30 Random Glucose 255 mg/dL (74-106) H 12/09/17 07:30 Calcium 9.3 mg/dL (8.5-10.1) 12/09/17 07:30 Total Bilirubin 0.2 mg/dL (0.2-1.0) 12/09/17 04:36 AST 16 U/L (15-37) 12/09/17 04:36 ALT 35 U/L (12-78) 12/09/17 04:36 Alkaline Phosphatase 66 U/L (45-117) 12/09/17 04:36 Total Protein 6.2 g/dl (6.4-8.2) L 12/09/17 04:36 Albumin 3.4 g/dl (3.4-5.0) 12/09/17 04:36 CARDIAC ENZYMES Creatine Kinase 87 IU/L (26-192) 12/09/17 12:25 Troponin I < 0.02 ng/ml (0.00-0.05) 12/09/17 12:25 ECG Normal sinus rhythm vent rate 91, QTC 462 TWI lead 1, aVL Q waves lead 3, aVF Radiology Reports CT abdomen and pelvis without contrast Small vascular calcifications more likely than nonobstructing stones bilateral kidneys. Multiple pelvic phleboliths but no definite ureteral stones. No obstructive uropathy. No bladder calculi. No bowel obstruction, colitis, free fluid or free air. Normal appendix. Scattered diverticula colon Unremarkable pancreas and gallbladder. ASSESSMENT/PLAN: 57 year old female with a past medical history of HTN, HLD, CAD, IDDM who presented to the ED with SOB/STEVENSON. She also had nausea and LLQ pain x 3 days which is no longer present. CT abd/pelvis without acute findings. consulted for dizzyness which she reports resolved. Denies room spinning sensation. Denies lightheadedness. Disucssed hydration and avoid sudden head movements. Cardiology followup, tele monitoring ongoing. Monitor blood pressure, maintain normotensive range. Maintain adequate hydration. Can continue ASA, anti-HTN meications. Monitor glucose, maintain euglycemic range.
[2017-12-11] MEDS: LISINOPRIL 10 MG TABLET (FP) PO SCH (09:30)
[2017-12-11] MEDS: PANTOPRAZOLE 40 MG TABLET (FP) PO SCH ×2 (09:30→21:08)
[2017-12-11] MEDS: ASPIRIN 81 MG CHEWABLE TABLETS PO SCH (09:30)
--- NOTE | 2017-12-11 10:57 | DS ---
Physical Examination Vital Signs: Vital Signs Temperature 98.2 F 12/11/17 06:00 Pulse Rate 102 H 12/11/17 06:00 Respiratory Rate 18 12/11/17 06:00 Blood Pressure 133/69 12/11/17 06:00 O2 Sat by Pulse Oximetry (%) 96 12/11/17 04:00 Constitutional: Yes: Mild Distress Eyes: Yes: WNL HENT: Yes: WNL Neck: Yes: WNL Cardiovascular: Yes: WNL Respiratory: Yes: WNL Gastrointestinal: Yes: WNL Renal/: Yes: WNL Musculoskeletal: Yes: Muscle Weakness Extremities: Yes: WNL Edema: No Integumentary: Yes: WNL Wound/Incision: Yes: Clean/Dry Neurological: Yes: Pre-Existing Deficit ...Motor Strength: LLE, RLE Psychiatric: Yes: Other Labs: CBC, BMP 12/09/17 07:30 12/09/17 07:30 Discharge Summary Reason For Visit: SHORTNESS OF BREATH Current Active Problems Abdominal pain (Acute) CAD (coronary artery disease) (Acute) Cigarette nicotine dependence (Acute) Nausea (Acute) Shortness of breath (Acute) Procedures: Principal: stress test Hospital Course: acute coronary syndrome transferring to [facility] for cardiac cath Condition: Stable - Instructions Diet, Activity, Other Instructions: Please return to the emergency department with any new or worsening symptoms or concerns. Please follow up with your primary care physician within 72 hours. Referrals: Albin Loo MD [Primary Care Provider] - Disposition: TRANSFER ACUTE CARE/OTHER HOSP - Home Medications Comprehensive Discharge Medication List: Ambulatory Orders Aspirin 81 mg PO DAILY 09/29/17 Atenolol [Tenormin -] 25 mg PO DAILY 09/29/17 Desvenlafaxine [Desvenlafaxine ER] 100 mg PO DAILY 09/29/17 Lisinopril 10 mg PO DAILY 09/29/17 Olanzapine [Zyprexa -] 12.5 mg PO HS tablet 10/01/17 Insulin (Novolog) [Novolog -] 0 units SQ BID 12/09/17 Insulin Degludec [Tresiba Flextouch U-100] 70 unit SQ HS 12/09/17 Albuterol 2.5/Ipratropium 0.5 [Duoneb -] 1 amp NEB RQID amp 12/11/17 Insulin (Levemir) [Levemir Vial] 35 units SQ BIDI units 12/11/17 Insulin Sliding Scale [Novolog Vial Sliding Scale -] 1 vial SQ ACHS units 12/11 Ondansetron [Zofran Odt -] 4 mg SL Q6H PRN tab.rapdis 12/11/17 Pantoprazole Sodium [Protonix -] 40 mg PO BID tablet.ec 12/11/17
[2017-12-11] MEDS: ATENOLOL 25 MG TABLET (FP) PO SCH (11:12)
--- NOTE | 2017-12-11 12:38 | PN ---
Progress Note (short form) - Note Progress Note: PULMONARY Intermittent shortness of breath but overall improved. Vital Signs Period Temp Pulse Resp BP Sys/[place] Pulse Ox Last 24 Hr 98.2 F-98.4 F 81-106 16-19 106-152/59-76 96-96 Gen: NAD at rest Heart: RRR Lung: decreased breath sounds at the bases Abd: soft, nontender Ext: no edema CBC, BMP 12/09/17 07:30 12/09/17 07:30 Active Medications Albuterol/Ipratropium (Duoneb -) 1 amp NEB RQID [facility] Last Admin: 12/11/17 11:18 Dose: Not Given Aspirin (Asa -) 81 mg PO DAILY [facility] Last Admin: 12/11/17 09:30 Dose: 81 mg Atenolol (Tenormin -) 25 mg PO DAILY [facility] Last Admin: 12/11/17 11:12 Dose: 25 mg Insulin Aspart (Novolog Vial Sliding Scale -) 1 vial SQ ACHS [facility]; Protocol Last Admin: 12/11/17 11:12 Dose: 8 units Insulin Detemir (Levemir Vial) 35 units SQ BIDI [facility] Last Admin: 12/11/17 05:59 Dose: 35 units Lisinopril (Prinivil) 10 mg PO DAILY [facility] Last Admin: 12/11/17 09:30 Dose: 10 mg Non-Formulary Medication (Desvenlafaxine [Desvenlafaxine Er]) 100 mg PO DAILY [facility] Olanzapine (Zyprexa -) 12.5 mg PO HS [facility] Last Admin: 12/10/17 22:43 Dose: 12.5 mg Ondansetron HCl (Zofran Odt -) 4 mg SL Q6H PRN PRN Reason: NAUSEA AND/OR VOMITING Pantoprazole Sodium (Protonix -) 40 mg PO BID [facility] Last Admin: 12/11/17 09:30 Dose: 40 mg A/P Shortness of Breath/Chest Pain CAD r/o Angina HTN DM Hyperlipidemia - ASA, statin - beta ge[place] - inhaled bronchodilators as needed - O2 to keep Spo2 >90% - continued smoking cessation - outpt PFTs - for cardiac catheterization Problem List - Problems (1) CAD (coronary artery disease) Code(s): I25.10 - ATHSCL HEART DISEASE OF [place] CORONARY ARTERY W/O ANG PCTRS Qualifiers: Associated angina: with stable angina (2) Shortness of breath Code(s): R06.02 - SHORTNESS OF BREATH (3) Chest pain Code(s): R07.9 - CHEST PAIN, UNSPECIFIED Qualifiers: Chest pain type: chest pain on breathing Qualified Code(s): R07.1 - Chest pain on breathing; R07.81 - Pleurodynia (4) Diabetes Code(s): E11.9 - TYPE 2 DIABETES MELLITUS WITHOUT COMPLICATIONS (5) HTN (hypertension) Code(s): I10 - ESSENTIAL (PRIMARY) HYPERTENSION (6) Hyperlipidemia Code(s): E78.5 - HYPERLIPIDEMIA, UNSPECIFIED
[2017-12-11 18:12] VITALS: BP 108/54; PULSE 83; TEMP 97.9
[2017-12-11] MEDS: OLANZapine 2.5 MG TABLET PO SCH (21:08)
== END 2017-12-11 21:15 | disposition short-term general hospital (02) ==
LOC: JER 21:46 → JERBED 12-09 03:27 → J4S 12-09 05:17
PROVIDERS: ADMIT Internal Medicine; ATTEND Family Medicine
PROC: 3E033GC Introduction of Other Therapeutic Substance into Peripheral Vein, Percutaneous Approach (ICD-10-PCS; principal; 2017-12-09)
PROC: 3E0337Z Introduction of Electrolytic and Water Balance Substance into Peripheral Vein, Percutaneous Approach (ICD-10-PCS; 2017-12-09)
PROC: 3E013VG Introduction of Insulin into Subcutaneous Tissue, Percutaneous Approach (ICD-10-PCS; 2017-12-09)
PROC: 3E0F7GC Introduction of Other Therapeutic Substance into Respiratory Tract, Via Natural or Artificial Opening (ICD-10-PCS; 2017-12-09)
DX: R06.02 Shortness of breath (principal); I10 Essential (primary) hypertension; E78.5 Hyperlipidemia, unspecified; E11.65 Type 2 diabetes mellitus with hyperglycemia; E11.8 Type 2 diabetes mellitus with unspecified complications; I25.10 Atherosclerotic heart disease of native coronary artery without angina pectoris; F17.210 Nicotine dependence, cigarettes, uncomplicated; F33.9 Major depressive disorder, recurrent, unspecified; R07.1 Chest pain on breathing; R10.32 Left lower quadrant pain; R11.0 Nausea; R00.2 Palpitations; Z91.89 Other specified personal risk factors, not elsewhere classified; Z79.4 Long term (current) use of insulin; Z95.5 Presence of coronary angioplasty implant and graft; Z79.82 Long term (current) use of aspirin
CPT/HCPCS: 36415; 71045-TC-FY; 71250-TC; 74176-TC; 80048; 80053; 81003; 82550; 82553; 82962; 83036; 83735; 84100; 84484; 85025; 85610; 87086; 93005; 93010; 93306-TC; 93880-TC; 94640; 96361; 96365; 96372; 96375; 99283-25; G0378; J7030; J7620

== ENCOUNTER 2018-06-29 15:07 | Inpatient (IN) | payer OTHER ==
[2018-06-29 16:17] LABS: URINE APPEARANCE CLEAR; URINE BILIRUBIN NEGATIVE (<2.0 mg/dL); URINE COLOR LTYELLOW; URINE GLUCOSE (UA) 3+ (NEGATIVE); URINE KETONE NEGATIVE (NEGATIVE); URINE LEUK ESTERASE NEGATIVE (NEGATIVE); URINE NITRITE NEGATIVE (NEGATIVE); URINE PROTEIN 1+ (NEGATIVE); URINE UROBILINOGEN NEGATIVE mg/dL (0.2-1.0)
[2018-06-29 16:28] LABS: EPI CELLS RARE /HPF (FEW); URINE MUCUS RARE
[2018-06-29] MEDS ORDERED: SODIUM CHLORIDE 1,000 ML IV STA ×2 (17:57→20:31)
[2018-06-29 18:24] LABS: BASO % 1.1 % (0-2.0); HEMATOCRIT 41.8 % (32.4-45.2); HEMOGLOBIN 13.9 GM/dL (10.7-15.3); MCH 28.8 pg (25.7-33.7); MCHC 33.3 g/dl (32.0-36.0); MEAN CELL VOLUME 86.3 fl (80-96); MEAN PLT VOLUME 10.6 fl (7.5-11.1); MONO % 7.5 % (3.8-10.2); NEUT % 65.4 % (42.8-82.8); PLATELET COUNT 245 K/MM3 (134-434); RBC 4.84 M/mm3 (3.60-5.2); RDW 14.8 % (11.6-15.6); WHITE BLOOD COUNT 8.4 K/mm3 (4.0-10.0)
[2018-06-29 18:29] LABS: VENOUS PH 7.36 (7.32-7.42); VENOUS PO2 46.6 mmHg (28-48)
--- NOTE | 2018-06-29 18:35 | PDOC ---
History of Present Illness - General Chief Complaint: Blood Sugar Problem Stated Complaint: SUGAR HIGH Time Seen by Provider: 06/29/18 17:55 History Source: Patient Exam Limitations: No Limitations - History of Present Illness Initial Comments: 06/29/18 18:01 58-year-old female with history of diabetes followed by Dr. Loo presents to ED for at elevated glucose which were noted at home. Patient states glucometer was reading high without an actual number. Patient has no complaints of chest pain, shortness of breath, weakness, headache, nausea change in urine output, or change in appetite. Timing/Duration: other Associated Symptoms: reports: denies symptoms Past History - Travel Traveled outside of the country in the last 30 days: No - Past Medical History Allergies/Adverse Reactions: Allergies Allergy/AdvReac Type Severity Reaction Status Date / Time No Known Allergies Allergy Verified 06/29/18 15:46 Home Medications: Ambulatory Orders Aspirin 81 mg PO DAILY 09/29/17 Atenolol [Tenormin -] 25 mg PO DAILY 09/29/17 Desvenlafaxine [Desvenlafaxine ER] 100 mg PO DAILY 09/29/17 Lisinopril 10 mg PO DAILY 09/29/17 Olanzapine [Zyprexa -] 12.5 mg PO HS tablet 10/01/17 Insulin Degludec [Tresiba Flextouch U-100] 70 unit SQ HS 12/09/17 Insulin Sliding Scale [Novolog Vial Sliding Scale -] 1 vial SQ ACHS units 12/11 Carvedilol [Coreg -] 12.5 mg PO HS 06/29/18 Carvedilol [Coreg -] 25 mg PO AM 06/29/18 Cardiac Disorders: Yes (CAD, 3 STENTS) COPD: No Diabetes: Yes (IDDM) HTN: Yes Hypercholesterolemia: Yes Psychiatric Problems: Yes - Surgical History Abdominal Surgery: Yes (umbilical hernia repair) Cardiac Surgery: Yes (3 STENTS) Orthopedic Surgery: Yes (Left ankle, Left rotator cuff) - Suicide/Smoking/Psychosocial Hx Smoking History: Current every day smoker Have you smoked in the past 12 months: Yes Number of Cigarettes Smoked Daily: 10 If you are a former smoker, when did you quit?: 12/05/2017 Information on smoking cessation initiated: No 'Breaking Loose' booklet given: 12/08/17 Hx Alcohol Use: Yes (social) Substance Use Type: None Hx Substance Use Treatment: No Patient Lives Alone: No Lives with/in: spouse/SO Review of Systems - Review of Systems Constitutional: No: Symptoms Reported HEENTM: No: Symptoms Reported Respiratory: No: Symptoms reported Cardiac (ROS): No: Symptoms Reported ABD/GI: No: Symptoms Reported : No: Symptoms Reported Musculoskeletal: No: Symptoms Reported Integumentary: No: Symptoms Reported Neurological: No: Symptoms reported Endocrine: No: Symptoms Reported Hematologic/Lymphatic: No: Symptoms Reported *Physical Exam - Vital Signs Last Vital Signs Temp Pulse Resp BP Pulse Ox 98.3 F 108 H 20 96/62 100 06/29/18 15:49 06/29/18 15:49 06/29/18 15:49 06/29/18 15:49 06/29/18 15:49 - Physical Exam General Appearance: Yes: Nourished, Appropriately Dressed. No: Apparent Distress HEENT: positive: EOMI, SHIRA. negative: Pale Conjunctivae Neck: positive: Supple Respiratory/Chest: positive: Lungs Clear, Normal Breath Sounds. negative: Respiratory Distress, Accessory Muscle Use Cardiovascular: positive: Regular Rhythm, Regular Rate. negative: Murmur Gastrointestinal/Abdominal: positive: Soft. negative: Tenderness Extremity: positive: Normal Capillary Refill. negative: Pedal Edema Integumentary: positive: Normal Color, Warm, Moist Neurologic: positive: Motor Strength 5/5 (ambulatory) Moderate Sedation - Procedure Monitoring Vital Signs: Procedure Monitoring Vital Signs Temperature 98.3 F 06/29/18 15:49 Pulse Rate 108 H 06/29/18 15:49 Respiratory Rate 20 06/29/18 15:49 Blood Pressure 96/62 06/29/18 15:49 O2 Sat by Pulse Oximetry (%) 100 06/29/18 15:49 ED Treatment Course - LABORATORY CBC & Chemistry Diagram: 06/29/18 17:59 06/29/18 17:59 - ADDITIONAL ORDERS Additional order review: Laboratory Results 06/29/18 06/29/18 17:59 15:54 VBG pH 7.36 POC VBG pCO2 50.0 POC VBG pO2 46.6 Mixed VBG HCO3 27.4 H Urine Color Ltyellow Urine Appearance Clear Urine pH 5.0 Ur Specific [place] 1.037 H Urine Protein 1+ H Urine Glucose (UA) 3+ H Urine Ketones Negative Urine Blood 1+ H Urine Nitrite Negative Urine Bilirubin Negative Urine Urobilinogen Negative Ur Leukocyte Esterase Negative Urine WBC (Auto) <1 Urine RBC (Auto) <1 Ur Epithelial Cells Rare Urine Mucus Rare 06/29/18 17:59 RBC 4.84 MCV 86.3 MCHC 33.3 RDW 14.8 MPV 10.6 D Neutrophils % 65.4 D Lymphocytes % 26.0 D Monocytes % 7.5 Eosinophils % 0.0 Basophils % 1.1 - RADIOLOGY Radiology Studies Ordered: Category Date Time Status CHEST X-RAY PORTABLE* [RAD] Stat Radiology 06/29/18 17:57 Ordered Medical Decision Making - Medical Decision Making 06/29/18 18:36 CC: glucose reading high this morning. Patient has no complaints. Exam: patient slightly tachycardic with no acute findings Plan: labs, VBG, acetone, IV fluids and BGM. Patient also order for urine 06/29/18 18:39 Laboratory Tests 06/29/18 06/29/18 06/29/18 15:54 17:59 17:59 WBC 8.4 Hgb 13.9 Hct 41.8 Absolute Neuts (auto) 5.5 Neutrophils % 65.4 D VBG pH 7.36 POC VBG pCO2 50.0 POC VBG pO2 46.6 Mixed VBG HCO3 27.4 H Ur Specific [place] 1.037 H Urine Protein 1+ H Urine Glucose (UA) 3+ H Urine Blood 1+ H Ur Leukocyte Esterase Negative Urine WBC (Auto) <1 Urine RBC (Auto) <1 Ur Epithelial Cells Rare Urine Mucus Rare Fingerstick reading 336 *DC/Admit/Observation/Transfer - Referrals Referrals: Albin Loo MD [Primary Care Provider] - - Patient Instructions - Post Discharge Activity
--- NOTE | 2018-06-29 20:38 | PDOC ---
*Physical Exam - Vital Signs Last Vital Signs Temp Pulse Resp BP Pulse Ox 98.3 F 100 H 18 129/72 98 06/29/18 15:49 06/29/18 18:52 06/29/18 18:52 06/29/18 18:52 06/29/18 18:52 - Physical Exam General Appearance: Yes: Appropriately Dressed Respiratory/Chest: positive: Lungs Clear, Normal Breath Sounds Cardiovascular: positive: Tachycardia Gastrointestinal/Abdominal: positive: Normal Bowel Sounds, Soft. negative: Tender Musculoskeletal: positive: Normal Inspection Extremity: positive: Normal Capillary Refill, Normal Inspection, Normal Range of Motion Integumentary: positive: Normal Color, Dry, Warm Neurologic: positive: Fully Oriented, Alert ED Treatment Course - LABORATORY CBC & Chemistry Diagram: 06/29/18 17:59 06/29/18 20:12 - ADDITIONAL ORDERS Additional order review: Laboratory Results 06/29/18 06/29/18 06/29/18 17:59 17:59 15:54 VBG pH 7.36 POC VBG pCO2 50.0 POC VBG pO2 46.6 Mixed VBG HCO3 27.4 H Sodium Cancelled Potassium Cancelled Chloride Cancelled Carbon Dioxide Cancelled Anion Gap Cancelled BUN Cancelled Creatinine Cancelled Creat Clearance w eGFR Cancelled Random Glucose Cancelled Calcium Cancelled Magnesium Cancelled Total Bilirubin Cancelled AST Cancelled ALT Cancelled Alkaline Phosphatase Cancelled Total Protein Cancelled Albumin Cancelled Urine Color Ltyellow Urine Appearance Clear Urine pH 5.0 Ur Specific [place] 1.037 H Urine Protein 1+ H Urine Glucose (UA) 3+ H Urine Ketones Negative Urine Blood 1+ H Urine Nitrite Negative Urine Bilirubin Negative Urine Urobilinogen Negative Ur Leukocyte Esterase Negative Urine WBC (Auto) <1 Urine RBC (Auto) <1 Ur Epithelial Cells Rare Urine Mucus Rare Acetone, Qual Cancelled 06/29/18 17:59 RBC 4.84 MCV 86.3 MCHC 33.3 RDW 14.8 MPV 10.6 D Neutrophils % 65.4 D Lymphocytes % 26.0 D Monocytes % 7.5 Eosinophils % 0.0 Basophils % 1.1 - Medications Given in the ED: ED Medications Discontinued Medications Generic Name Dose Route Start Last Admin Trade Name Freq PRN Reason Stop Dose Admin Sodium Chloride 1,000 mls @ 1,000 mls/hr 06/29/18 17:57 06/29/18 18:16 Normal Saline - IV 06/29/18 18:56 1,000 mls/hr ASDIR STA Administration Medical Decision Making - Medical Decision Making 06/29/18 20:33 patient is drinking water and eating chicken and fries. reports that blood sugar has been high at home. cmp , lipase mad acetone levels pending. 06/29/18 23:[address] hussein. recommends admission for persistent hyperglycemia. 06/30/18 00:04 patient signed out to [facility] for admission under dr. rojo 06/30/18 02:47 BGM out of range > 400. wrote insulin 10 mg sq written. 06/30/18 02:47 *DC/Admit/Observation/Transfer Diagnosis at time of Disposition: Hyperglycemia - Discharge Dispostion Decision to Admit order: Yes - Referrals - Patient Instructions - Post Discharge Activity
[2018-06-29 21:04] LABS: ALBUMIN 3.5 g/dl (3.4-5.0); ALK PHOS 97 U/L (45-117); ANION GAP 7 MMOL/L (8-16); BILIRUBIN,TOTAL 0.5 mg/dL (0.2-1); BLOOD UREA NITROGEN 10 mg/dL (7-18); CALCIUM 8.9 mg/dL (8.5-10.1); CHLORIDE 100 mmol/L (98-107); CO2 29 mmol/L (21-32); CREATININE 0.8 mg/dL (0.55-1.3); LIPASE 313 U/L (73-393); POTASSIUM 4.6 mmol/L (3.5-5.1); SGOT/AST 18 U/L (15-37); SGPT/ALT 29 U/L (13-61); SODIUM 136 mmol/L (136-145); TOT PROT 6.5 g/dl (6.4-8.2)
[2018-06-29 21:07] LABS: GLUCOSE,RANDOM 394 mg/dL (74-106)
--- NOTE | 2018-06-29 23:45 | HP ---
Admitting History and Physical - Primary Care Physician PCP: Albin Loo - Admission Chief Complaint: Dizziness, Polydipsia, Polyuria History of Present Illness: This is a 58 y/o woman with a PMHx of IDDM, HTN, HLD, CAD s/p Stents, Depression. Who presents to the ED with dizziness, polydipsia, polyuria and blood x 2 weeks. Patient reports that her blood glucometer readings- High. Patient reports having itching and vaginal discharge x several days. Patient reports having a decreased appetite but drinking 7UP. Patient reports taking her medication as prescribed. Patient denies fever, chills, cough, ERNANDEZ, SOB, CP, AP, N/V/D, constipation, dysuria History Source: Patient Limitations to Obtaining History: No Limitations - Past Medical History Cardiovascular: Yes: CAD, HTN, Hyperlipdemia, [place] Gastrointestinal: Yes: GERD Psych: Yes: Depression, Other (Multiple in-patient psychiatric hospitalizations for MDD; last 09/04- at [facility] for suicidal ideation, no prior suicide attemps. 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 History of Recent Travel: No Home Medications - Allergies Allergies/Adverse Reactions: Allergies Allergy/AdvReac Type Severity Reaction Status Date / Time No Known Allergies Allergy Verified 06/29/18 15:46 - Home Medications Home Medications: Ambulatory Orders Aspirin 81 mg PO DAILY 09/29/17 Atenolol [Tenormin -] 25 mg PO DAILY 09/29/17 Desvenlafaxine [Desvenlafaxine ER] 100 mg PO DAILY 09/29/17 Lisinopril 10 mg PO DAILY 09/29/17 Olanzapine [Zyprexa -] 12.5 mg PO HS tablet 10/01/17 Insulin Degludec [Tresiba Flextouch U-100] 70 unit SQ HS 12/09/17 Insulin Sliding Scale [Novolog Vial Sliding Scale -] 1 vial SQ ACHS units 12/11 Carvedilol [Coreg -] 12.5 mg PO HS 06/29/18 Carvedilol [Coreg -] 25 mg PO AM 06/29/18 Home Medications (free text): Janumet 500/50mg po Daily. Isosorbide ?mg po Daily. Novolog 15 units SQ AC Family Disease History - Family Disease History Family Disease History: Diabetes: Father ([place]), Mother (CABG, at 73yo; Depression), Other: Mother, Brother (Depression; committed suicide) Review of Systems - Review of Systems Constitutional: reports: Loss of Appetite Eyes: reports: No Symptoms HENT: reports: No Symptoms Neck: reports: No Symptoms Cardiovascular: reports: No Symptoms Respiratory: reports: No Symptoms Gastrointestinal: reports: No Symptoms Genitourinary: reports: Frequency Breasts: reports: No Symptoms Reported Musculoskeletal: reports: No Symptoms Integumentary: reports: No Symptoms Neurological: reports: Dizziness Endocrine: reports: Increased Thirst Hematology/Lymphatic: reports: No Symptoms Psychiatric: reports: No Symptoms Physical Examination Vital Signs: Vital Signs Temperature 98.3 F 06/29/18 15:49 Pulse Rate 100 H 06/29/18 18:52 Respiratory Rate 18 06/29/18 18:52 Blood Pressure 129/72 06/29/18 18:52 O2 Sat by Pulse Oximetry (%) 98 06/29/18 18:52 Constitutional: Yes: Well Nourished, No Distress, Calm, Obese Eyes: Yes: WNL, Conjunctiva Clear, EOM Intact, PERRL HENT: Yes: WNL, Atraumatic, Normocephalic Neck: Yes: WNL, Supple, Trachea Midline Cardiovascular: Yes: WNL, Regular Rate and Rhythm, S1, S2 Respiratory: Yes: WNL, Regular, CTA Bilaterally Gastrointestinal: Yes: Normal Bowel Sounds, Soft, Abdomen, Obese Renal/: Yes: Vaginal Discharge Breast(s): Yes: WNL Musculoskeletal: Yes: WNL Extremities: Yes: WNL Edema: No Peripheral Pulses WNL: Yes Labs: CBC, BMP 06/29/18 17:59 06/29/18 20:12
[2018-06-30] MEDS ORDERED: FLUCONAZOLE 50 MG TABLET PO ONE (01:34)
[2018-06-30] MEDS ORDERED: INSULIN REGULAR HUMAN 100 UNITS/ML *VIAL SQ ONE (02:46)
[2018-06-30] MEDS ORDERED: INSULIN REGULAR HUMAN 100 UNITS/ML *VIAL ONE (02:50)
[2018-06-30] MEDS ORDERED: FLUCONAZOLE 100 MG TABLET (UD) ONE (02:50)
[2018-06-30] MEDS: INSULIN SLIDING SCALE (NOVOLOG) 1 VIAL SQ SCH ×4 (06:52→21:31)
[2018-06-30 08:02] LABS: BASO % 0.8 % (0-2.0); HEMATOCRIT 36.2 % (32.4-45.2); HEMOGLOBIN 11.9 GM/dL (10.7-15.3); MCH 28.1 pg (25.7-33.7); MCHC 32.9 g/dl (32.0-36.0); MEAN CELL VOLUME 85.6 fl (80-96); MONO % 7.2 % (3.8-10.2); PLATELET COUNT 172 K/MM3 (134-434); RBC 4.23 M/mm3 (3.60-5.2); RDW 14.7 % (11.6-15.6); WHITE BLOOD COUNT 5.9 K/mm3 (4.0-10.0)
[2018-06-30] MEDS: VENLAFAXINE HCL 75 MG E.R. CAPSULES (FP) PO SCH (08:45)
[2018-06-30 08:54] LABS: ANION GAP 4 MMOL/L (8-16); BLOOD UREA NITROGEN 6 mg/dL (7-18); CALCIUM 8.2 mg/dL (8.5-10.1); CHLORIDE 107 mmol/L (98-107); CO2 29 mmol/L (21-32); CREATININE 0.6 mg/dL (0.55-1.3); GLUCOSE,RANDOM 267 mg/dL (74-106); POTASSIUM 3.8 mmol/L (3.5-5.1); SODIUM 140 mmol/L (136-145)
[2018-06-30] MEDS: ASPIRIN 81 MG CHEWABLE TABLETS PO SCH (09:27)
[2018-06-30] MEDS: CARVEDILOL 25 MG TABLET (FP) PO SCH (09:27)
--- NOTE | 2018-06-30 15:06 | EKG ---
Test Reason : Blood Pressure : / mmHG Vent. Rate : 094 BPM Atrial Rate : 094 BPM P-R Int : 136 ms QRS Dur : 074 ms QT Int : 388 ms P-R-T Axes : 081 -01 078 degrees QTc Int : 485 ms NORMAL SINUS RHYTHM POSSIBLE LEFT ATRIAL ENLARGEMENT SEPTAL INFARCT (CITED ON OR BEFORE 29-SEP-2017) ABNORMAL ECG Confirmed by Alfie De La Cruz MD ([id number]) on 06/30/2018 3:05:23 PM Referred By: Confirmed By:Alfie De La Cruz MD
--- NOTE | 2018-06-30 15:54 | PN ---
Progress Note, Physician Chief Complaint: Hyperglycemia DM History of Present Illness: Previous notes and events reviewed awake and alert NAD denies chest pain, complain of experiencing SOB with exertion - Current Medication List Current Medications: Active Medications Aspirin (Asa -) 81 mg PO DAILY [facility] Last Admin: 06/30/18 09:27 Dose: 81 mg Carvedilol (Coreg -) 12.5 mg PO [facility] Carvedilol (Coreg -) 25 mg PO DAILY [facility] Last Admin: 06/30/18 09:27 Dose: 25 mg Insulin Aspart (Novolog Vial Sliding Scale -) 1 vial SQ ACHS [facility]; Protocol Last Admin: 06/30/18 11:04 Dose: 6 units Olanzapine 10 mg/ Olanzapine 2 (.5 mg) 12.5 mg PO [facility] Venlafaxine HCl (Effexor Xr -) 150 mg PO DAILY@0800 [facility] Last Admin: 06/30/18 08:45 Dose: 150 mg - Objective Vital Signs: Vital Signs Temperature 98.1 F 06/30/18 13:34 Pulse Rate 86 06/30/18 13:34 Respiratory Rate 20 06/30/18 13:34 Blood Pressure 112/66 06/30/18 13:34 O2 Sat by Pulse Oximetry (%) 97 06/30/18 04:12 Constitutional: Yes: Well Nourished, No Distress, Calm Eyes: Yes: Conjunctiva Clear HENT: Yes: Normocephalic Cardiovascular: Yes: Regular Rate and Rhythm Respiratory: Yes: Regular, CTA Bilaterally Gastrointestinal: Yes: Normal Bowel Sounds, Soft Extremities: Yes: WNL Edema: No Neurological: Yes: Alert, Oriented Psychiatric: Yes: Alert, Oriented Labs: CBC, BMP 06/30/18 06:45 06/30/18 06:45 <Lyubov Ryan - Last Filed: 06/30/18 16:00> - Current Medication List Current Medications: Active Medications Aspirin (Asa -) 81 mg PO DAILY [facility] Last Admin: 06/30/18 09:27 Dose: 81 mg Carvedilol (Coreg -) 12.5 mg PO HS [facility] Last Admin: 06/30/18 21:30 Dose: 12.5 mg Carvedilol (Coreg -) 25 mg PO DAILY [facility] Last Admin: 06/30/18 09:27 Dose: 25 mg Insulin Aspart (Novolog Vial Sliding Scale -) 1 vial SQ ACHS [facility]; Protocol Last Admin: 07/01/18 06:16 Dose: 4 units Olanzapine 10 mg/ Olanzapine 2 (.5 mg) 12.5 mg PO HS [facility] Last Admin: 06/30/18 21:30 Dose: 12.5 mg Venlafaxine HCl (Effexor Xr -) 150 mg PO DAILY@0800 [facility] Last Admin: 07/01/18 07:52 Dose: 150 mg - Objective Vital Signs: Vital Signs Temperature 97.6 F 07/01/18 06:00 Pulse Rate 75 07/01/18 06:00 Respiratory Rate 20 07/01/18 06:00 Blood Pressure 101/52 L 07/01/18 06:00 O2 Sat by Pulse Oximetry (%) 97 06/30/18 22:00 Labs: CBC, BMP 06/30/18 06:45 06/30/18 06:45 <Dieudonne Rayo - Last Filed: 07/01/18 09:32> Problem List - Problems (1) Hyperglycemia Assessment/Plan: -endocrinology consult -HgA1c 10.1 -BGM ACHS, ISS -diabetic diet Code(s): R73.9 - HYPERGLYCEMIA, UNSPECIFIED (2) HTN (hypertension) Assessment/Plan: -cont with coreg -low Na diet Code(s): I10 - ESSENTIAL (PRIMARY) HYPERTENSION (3) Shortness of breath Assessment/Plan: -pulmonary consult -O2 via NC PRN for SOB -keep SpO2 >90% Code(s): R06.02 - SHORTNESS OF BREATH <Lyubov Ryan - Last Filed: 06/30/18 16:00> Assessment/Plan see problem list dvt ppx <Lyubov Ryan - Last Filed: 06/30/18 16:00> PATIENT SEEN AND EXAMINED AGREE WITH ABOVE NOTE <Dieudonne Rayo - Last Filed: 07/01/18 09:32>
[2018-06-30] MEDS ORDERED: PT OWN MED DRAWER 7, Y5N ONE (21:10)
[2018-06-30] MEDS ORDERED: INSULIN (NOVOLOG) ASPART 100 UNITS/ML 10ML VIAL ONE (21:11)
[2018-06-30] MEDS ORDERED: OLANZAPINE 10 MG, OLANZAPINE 2.5 MG PO SCH (22:00)
[2018-06-30] MEDS ORDERED: CARVEDILOL 12.5 MG TABLET (FP) PO SCH (22:00)
[2018-06-30] MEDS ORDERED: OLANZapine 2.5 MG TABLET PO SCH (22:00)
[2018-07-01] MEDS: INSULIN SLIDING SCALE (NOVOLOG) 1 VIAL SQ SCH (06:16)
[2018-07-01] MEDS ORDERED: PT OWN MED DRAWER 7, Y5N ONE (07:50)
[2018-07-01] MEDS: VENLAFAXINE HCL 75 MG E.R. CAPSULES (FP) PO SCH (07:52)
--- NOTE | 2018-07-01 09:39 | DS ---
Physical Examination Vital Signs: Vital Signs Temperature 97.6 F 07/01/18 06:00 Pulse Rate 75 07/01/18 06:00 Respiratory Rate 20 07/01/18 06:00 Blood Pressure 101/52 L 07/01/18 06:00 O2 Sat by Pulse Oximetry (%) 97 06/30/18 22:00 Findings/Remarks: AWAITING ENDOCRINE AND DIETARY CONSULT BEFORE DISCHARGE CAN FOLLOW OUTPATIENT FOR BGM CHECKS Constitutional: Yes: No Distress Eyes: Yes: WNL HENT: Yes: WNL Neck: Yes: WNL Cardiovascular: Yes: WNL Respiratory: Yes: WNL Gastrointestinal: Yes: WNL Renal/: Yes: WNL Musculoskeletal: Yes: WNL Extremities: Yes: WNL Edema: No Integumentary: Yes: WNL Wound/Incision: Yes: Clean/Dry Neurological: Yes: WNL Psychiatric: Yes: Other Labs: CBC, BMP 06/30/18 06:45 06/30/18 06:45 Discharge Summary Reason For Visit: HYPERGLYCEMIA Current Active Problems Hyperglycemia (Acute) Procedures: Principal: LABS/CX [facility]INE [facility]: CAN F/U BGM OUTPATIENT AFTER BEING SEEN HERE WITH ENDOCRINE CONSULT, DIETARY YULIYA FOR MENUS AND PATIENT TEACHING. HOME HEALTH AID TO ASSIST IN BGM, FOOD PREP , AND FOLLOW UP WITH COMMUNITY DOCTOR. - Instructions Diet, Activity, Other Instructions: ADA MENU PER NUTRIONIST ENDOCRINE F/U DR HART IN 2 DAYS Referrals: Albin Loo MD [Primary Care Provider] - Disposition: VNS/HOME HEALTH CARE - Home Medications Comprehensive Discharge Medication List: Ambulatory Orders Aspirin 81 mg PO DAILY 09/29/17 Atenolol [Tenormin -] 25 mg PO DAILY 09/29/17 Desvenlafaxine [Desvenlafaxine ER] 100 mg PO DAILY 09/29/17 Lisinopril 10 mg PO DAILY 09/29/17 Olanzapine [Zyprexa -] 12.5 mg PO HS tablet 10/01/17 Insulin Degludec [Tresiba Flextouch U-100] 70 unit SQ HS 12/09/17 Insulin Sliding Scale [Novolog Vial Sliding Scale -] 1 vial SQ ACHS units 12/11 Carvedilol [Coreg -] 12.5 mg PO HS 06/29/18 Carvedilol [Coreg -] 25 mg PO AM 06/29/18 Isosorbide Mononitrate [Imdur -] 1 pack PO DAILY 06/30/18 Sitagliptin Phos/Metformin HCl [Janumet 50-500 mg Tablet] 1 each PO BID
[2018-07-01] MEDS: ASPIRIN 81 MG CHEWABLE TABLETS PO SCH (09:50)
[2018-07-01] MEDS: CARVEDILOL 25 MG TABLET (FP) PO SCH (09:50)
[2018-07-01 10:09] VITALS: BP 138/82; PULSE 80; TEMP 98
[2018-07-01 12:01] VITALS: BMI 25.2
== END 2018-07-01 11:35 | disposition home health service (06) | DRG 639 ==
LOC: JER 15:07 → JERBED 23:19 → J6S 06-30 03:49
PROVIDERS: ADMIT Family Medicine; ATTEND Family Medicine
DX: E11.65 Type 2 diabetes mellitus with hyperglycemia (principal); I25.10 Atherosclerotic heart disease of native coronary artery without angina pectoris; E78.5 Hyperlipidemia, unspecified; F32.9 Major depressive disorder, single episode, unspecified; Z79.4 Long term (current) use of insulin; Z95.5 Presence of coronary angioplasty implant and graft; F17.210 Nicotine dependence, cigarettes, uncomplicated; E66.9 Obesity, unspecified; Z68.25 Body mass index [BMI] 25.0-25.9, adult
CPT/HCPCS: 36415; 71045-TC-FY; 80048; 80053; 81003; 81015; 82009; 82550; 82803; 82962; 83036; 83690; 83880; 84484; 85025; 87086; 93005; 93010; 99285-25; J7030

== ENCOUNTER 2024-03-01 04:47 | Day surgery (SDC) | payer OTHER ==
[2024-02-24 10:28] VITALS: BMI 30.8
[2024-03-01 13:14] VITALS: TEMP 98.2
[2024-03-01 13:41] VITALS: BP 121/61; PULSE 86; RESP 17
== END 2024-03-01 14:30 | disposition home or self-care (01) ==
LOC: JASU-ENDO 04:47
PROVIDERS: ATTEND Internal Medicine Gastroenterology
PROC: 0DBL8ZX Excision of Transverse Colon, Via Natural or Artificial Opening Endoscopic, Diagnostic (ICD-10-PCS; 2024-03-01)
PROC: 0DBN8ZX Excision of Sigmoid Colon, Via Natural or Artificial Opening Endoscopic, Diagnostic (ICD-10-PCS; 2024-03-01)
PROC: 0DBM8ZX Excision of Descending Colon, Via Natural or Artificial Opening Endoscopic, Diagnostic (ICD-10-PCS; principal; 2024-03-01 10:45)
DX: Z12.11 Encounter for screening for malignant neoplasm of colon (principal); D12.3 Benign neoplasm of transverse colon; D12.5 Benign neoplasm of sigmoid colon; K63.5 Polyp of colon; K64.8 Other hemorrhoids; K57.30 Diverticulosis of large intestine without perforation or abscess without bleeding
CPT/HCPCS: 82962; 88305-TC